=== PATIENT | male | born 1940 | race Caucasian/White ===

== ENCOUNTER 2019-11-15 13:26 | Outpatient (CLI) | payer MEDICARE, BC, SELFPAY ==
--- NOTE | 2019-11-15 10:30 | XR_ITS ---
WS: [id number] ABDOMEN 1 VIEW(S) HISTORY: Hydronephrosis COMPARISON: 03/14/2019 Increased fecal material throughout the colon. Colostomy over the LEFT abdomen. No suspicious calcifications or masses. No bone abnormality. Numerous prostate seeds over the prostate gland. XR/XR KUB [id number] IMPRESSION: No renal or ureteral calcifications identified radiographically.
--- NOTE | 2019-11-15 13:45 | US_ITS ---
WS: [id number] RENAL ULTRASOUND HISTORY: HYDRONEPHROSIS COMPARISON: 06/30/2018 TECHNIQUE: 2-D and color Doppler imaging of the kidney submitted. Right kidney: 10.5 cm x 3.6 cm x 4.8 cm. Normal echogenicity with no hydronephrosis or mass. Left kidney: 10.7 cm x 4.4 cm x 4.9 cm. Normal size kidney with no hydronephrosis. Exophytic cyst from the mid kidney measures 2.3 x 2.2 x 2. 0 cm. Aorta: Normal. Urinary Bladder: Urinary bladder is not identified. US/US renal BI* [id number] IMPRESSION: No renal obstruction or hydronephrosis. Stable LEFT renal cyst.
== END 2019-11-15 13:27 | disposition home or self-care (01) ==
LOC: RADWPI 13:31
PROVIDERS: Family Provider Family Medicine; PCP Family Medicine; Visit Provider Urology
DX: N13.30 Unspecified hydronephrosis (principal); N28.1 Cyst of kidney, acquired; N28.89 Other specified disorders of kidney and ureter
CPT/HCPCS: 74018; 76770

== ENCOUNTER → 2020-05-04 18:33 | Outpatient (BNVA) | payer MEDICARE, BC, SELFPAY | PROVIDERS: Family Provider Family Medicine; PCP Family Medicine; Visit Provider Nurse Practitioner Family | DX: Z20.828 Contact with and (suspected) exposure to other viral communicable diseases (principal) | CPT/HCPCS: 87635 ==

== ENCOUNTER 2020-08-30 07:28 | Outpatient (CLI) | payer MEDICARE, BC, SELFPAY ==
[2020-08-30 07:49] VITALS: BMI 31.4
--- NOTE | 2020-08-30 07:50 | NMCV_ITS ---
NM brooklynn perf SPECT r/s* [id number] Jony Xavier Age: 79 Gender: M : 1940 Exam Date: 08/30/2020 07:50 Ordering Phys: Kraig Major MD ([email or web address]) Technologist: LETICIA Gonzalez Exam Location: [facility] Indications: SOB STRESS TEST Please see separate stress test report in [facility] for full findings IMAGE PROTOCOL Rest/Stress 1 Lexiscan Day Radiopharmaceutical Dose (mCi) Administration Site Administered by Rest: Tc-99m 10.8 IV LETICIA Esposito Sestamibi Stress:Tc-99m 33.0 IV LETICIA Gonzalez Sestamibi Rest: 30-Aug-2020 60 Discovery 630 Stress: 30-Aug-2020 45 Discovery 630 0.4mg Lexiscan. Supine position only as patient was unable to lay prone. SPECT RESULTS Technical Quality: Good Raw Data Analysis: Normal Image Corrections: No attenuation or motion correction applied Summed Stress Score: 17 Summed Rest Score: 15 Summed Difference Score: 2 PERFUSION FINDINGS Large area of fixed perfusion defect noted in basal to distal anteroseptal and apical lateral wall suggestive of old myocardial infarction versus scarring. Possible involvement of LAD territory. FUNCTIONAL RESULTS (calculated via Gated SPECT) Stress Image LV EF (%): 52 Stress EDV (mL):81 TID: 1.02 Stress ESV (mL):39 Rest Image LV EF (%): 50 FUNCTIONAL FINDINGS: There appeared to be basal to distal anteroseptal and apical wall akinesis IMPRESSIONS Large area of old myocardial infarction versus scarring noted in basal to distal anteroseptal and apical lateral wall suggestive of possible involvement of LAD territory. Nuclear scan is negative for ischemia. EKG segment will be documented separately. Kraig Major MD (Electronically Signed) Final Date: 30 August 2020 19:45 S
--- NOTE | 2020-08-30 07:50 | ECG_ITS ---
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 The perfusion scan will be documented separately. DATA: Baseline heart rate was 59 beats per minute. Baseline blood pressure was 167/82 millimeters of mercury. Target heart rate was 143. Maximum heart rate achieved was 92. which was 64 % of the predicted target heart rate. Maximum blood pressure was 167/82 millimeters of mercury. The reason for ending the test was completion of the protocol. The patient did not experience any symptoms. ELECTROCARDIOGRAM: BASELINE: Sinus rhythm. Left axis. Old anterior wall myocardial infarction otherwise, interventricular conduction delay, no ST-T changes suggestive of ischemia noted. No arrhythmia noted. EXERCISE: After Lexiscan injection, no ST-T changes suggestive of ischemic noted. No arrhythmia noted. CONCLUSION: Please note due to baseline abnormality of the EKG specificity and sensitivity of the EKG portion of LexiScan MIBI stress test will be low 1. EKG not suggestive of ischemia 2. Lexiscan injection unremarkable. 3. Perfusion scan will be documented separately. Electronically Signed On 09-05-2020 18:27:59 PEDIATRIC SPEECH LANGUAGE PATHOLOGIST by KRAIG MAJOR [email or web address]
[2020-08-30] MEDS: regadenoson 0.4 Mg/5 ml Syringe IVP (10:09)
[2020-08-30 10:15] VITALS: BP 151/66; PULSE 75
--- NOTE | 2020-08-30 14:15 | USCV_ITS ---
Xavier Borges Age: 79 Gender: M : 1940 Exam Date: 08/30/2020 08:28 Ordering Phys: Kraig Major MD ([email or web address]) Technologist: Alex Barkley [place] [facility] [place]ication: CHEST PAIN BP: 132 / 74 HR: 65 Rhythm: Sinus Technical Quality: Fair MEASUREMENTS (Male / Female) Normal Values 2D ECHO LV Diastolic Diameter PLAX 4.2 cm 4.2 - 5.9 / 3.9 - 5.3 cm LV Systolic Diameter PLAX 2.9 cm IVS Diastolic Thickness 0.9 cm 0.6 - 1.0 / 0.6 - 0.9 cm IVS Systolic Thickness 1.3 cm LVPW Diastolic Thickness 1.2 cm 0.6 - 1.0 / 0.6 - 0.9 cm LVPW Systolic Thickness 1.3 cm LVOT Diameter 2.0 cm LV Ejection Fraction 2D Teich 56.5 % LV Ejection Fraction MOD 2C 65.0 % LV Ejection Fraction 2C AL 65.1 % LA Diameter 3.8 cm LA Width 4.2 cm LA Height 5.1 cm RA Width 4.4 cm RA Height 4.4 cm M-MODE LV Diastolic Diameter MM 5.0 cm 4.2 - 5.9 / 3.9 - 5.3 cm LV Systolic Diameter MM 3.4 cm LV Ejection Fraction MM Teich 60.3 % IVS Diastolic Thickness MM 1.1 cm 0.6 - 1.0 / 0.6 - 0.9 cm IVS Systolic Thickness MM 1.4 cm LVPW Diastolic Thickness MM 1.1 cm 0.6 - 1.0 / 0.6 - 0.9 cm LVPW Systolic Thickness MM 1.8 cm RV Diastolic Diameter MM 1.5 cm Aortic Annulus Diameter 3.5 cm LA Ao Ratio MM 1.1 MV E Point Septal Separation 0.8 cm DOPPLER AV Peak Velocity 100.0 cm/s LVOT Peak Velocity 81.0 cm/s AV Area Cont Eq vti 2.4 cm squared AV Area Cont Eq pk 2.6 cm squared MV Area PHT 5.0 cm squared Mitral E to A Ratio 1.2 MV E' Velocity 41.5 cm/s Mitral E to MV E' Ratio 9.6 Mitral E to LV E' Lateral Ratio 10.7 Mitral E to LV E' Septal Ratio 8.7 TR Peak Velocity 227.0 cm/s TR Peak Gradient 20.6 mmHg TV Peak E Velocity 69.0 cm/s Right Atrial Pressure 3.0 mmHg Pulmonary Artery Systolic Pressu 23.6 mmHg PV Peak Velocity 83.0 cm/s FINDINGS Left Ventricle Normal left ventricular cavity size. Normal left ventricular systolic function. Left ventricular ejection fraction is estimated at 60 %. Mild septal bounce noted which could be due to interventricular conduction delay.Grade II/IV diastolic dysfunction, moderately elevated filling pressures. Right Ventricle The right ventricle is normal in size and function. Right Atrium The right atrium is normal in size. Left Atrium The left atrium is normal in size. Mitral Valve Structurally normal mitral valve without significant stenosis or prolapse. There is no mitral regurgitation. Aortic Valve Moderate aortic valve calcification. No aortic valve stenosis. Trace aortic valve regurgitation. Tricuspid Valve Structurally normal tricuspid valve without significant stenosis or regurgitation. Pulmonary artery systolic pressure is normal. Pulmonic Valve Mild pulmonary valve regurgitation. Pericardium Normal pericardium without effusion. Aorta Normal ascending aorta dimension. CONCLUSIONS 1-Normal left ventricular cavity size. Normal left ventricular systolic function. Left ventricular ejection fraction is estimated at 60 %. Mild septal bounce noted which could be due to interventricular conduction delay.Grade II/IV diastolic dysfunction, moderately elevated filling pressures. 2-Moderate aortic valve calcification. No aortic valve stenosis. Trace aortic valve regurgitation. 3-Mild pulmonary valve regurgitation. 4-There is no pericardial effusion. 5-Pulmonary artery systolic pressure is within normal limits. 6-Right atrial pressure is around 5 mm of mercury. 7-When compared to the prior echocardiogram dated July 31, 2016, left ventricle ejection fraction is slightly increased from low normal 50% to normal 60% now. There appeared to be mild pulmonary valve regurgitation. Kraig Major MD (Electronically Signed) Final Date: 02 September 2020 19:08 S
== END 2020-08-30 07:29 | disposition home or self-care (01) ==
LOC: CDL 07:28
PROVIDERS: PCP Family Medicine; Visit Provider Internal Medicine Cardiovascular Disease
DX: R06.02 Shortness of breath (principal); I25.810 Atherosclerosis of coronary artery bypass graft(s) without angina pectoris
CPT/HCPCS: 78452; 93017; 93306; A9500; J2785

== ENCOUNTER 2021-01-01 08:14 | Outpatient (CLI) | payer MEDICARE, BC, SELFPAY ==
--- NOTE | 2021-01-01 08:00 | US_ITS ---
WS: [id number] RENAL ULTRASOUND HISTORY: Z98.890 - Other specified postprocedural states COMPARISON: 11/15/2019 TECHNIQUE: 2-D and color Doppler imaging of the kidney submitted. Right kidney: 9.7 cm x 4.6 cm x 3.4 cm. Very slight increased echogenicity within the kidney. Parapelvic cyst in the superior pole measures 1 .3 x 1.0 x 1.5 cm. No solid mass or obstruction. Left kidney: 10.8 cm x 5.8 cm x 4.3 cm. Normal size kidney with very slight increased echogenicity. Exophytic cyst from the lower pole measur es 2.1 x 2.3 x 2.2 cm. No solid mass. Aorta: Normal. Urinary Bladder: Prior cystectomy. US/US renal BI* [id number] IMPRESSION: 1. No hydronephrosis or solid renal mass. 2. Very mild chronic medical renal disease. 3. Bilateral renal cysts.
--- NOTE | 2021-01-01 08:45 | XR_ITS ---
WS: [id number] KUB, AP view, 01/01/2021 Clinical Data: N13.30 - Unspecified hydronephrosis Comparison: KUB, 11/15/2019 Findings: No abnormal intraabdominal masses or calcifications are seen. There is no dilatated small bowel or ev idence of obstruction. There is a left lower quadrant colostomy. There are radiopaque seeds in the prostate bed. XR/XR KUB [id number] Impression: Negative for renal or ureteral calculi.
[2021-01-01 09:03] LABS: Basophils % 0.7 %; Eosinophils # 0.1 10^3/uL (0.0-0.8); Eosinophils % 3.1 %; Hematocrit 43.5 % (42.0-52.0); Hemoglobin 14.1 g/dL (11.7-16.6); Lymphocytes # 1.3 10^3/uL (0.8-4.8); Lymphocytes % 29.2 %; Mean Corpuscular HGB Conc 32.4 g/dL (30.0-36.0); Mean Corpuscular Hemoglobin 30.6 pg (28.0-34.0); Mean Corpuscular Volume 94.4 fL (80-94); Mean Platelet Volume 9.3 fL (7.4-10.4); Monocytes # 0.4 10^3/uL (0.2-0.9); Monocytes % 8.2 %; Neutrophils # 2.65 10^3/uL (1.8-7.7); Neutrophils % 58.6 %; Nucleated Red Blood Cells % 0 %; Platelet Count 186 10^3/cmm (130-400); Red Blood Count 4.61 10^6/uL (4.1-5.3); Red Cell Distribution Width 13.4 % (12.1-15.1); White Blood Count 4.5 10^3/uL (4.0-10.0)
[2021-01-01 09:19] LABS: Alanine Aminotransferase 22 U/L (0-41); Albumin Level 4.2 g/dL (3.5-5.2); Alkaline Phosphatase 76 IU/L (40-130); Anion Gap 15.5 (5-19); Aspartate Amino Transferase 16 U/L (0-40); Blood Urea Nitrogen 19 mg/dL (8-23); Calcium 8.7 mg/dL (8.5-10.5); Carbon Dioxide 23 mmol/L (22-29); Chloride 105 mmol/L (98-107); Globulin 2.5 g/dL (1.3-4.6); Glucose 120 mg/dL (65-115); Osmolality Calculated 291 mOsm/kg (285-295); Potassium 4.5 mmol/L (3.5-5.1); Sodium 139 mmol/L (136-145); Total Bilirubin 0.5 mg/dL (0.15-1.2); Total Protein 6.7 g/dL (6.6-8.7)
== END 2021-01-01 08:15 | disposition home or self-care (01) ==
PROVIDERS: PCP Family Medicine; Visit Provider Urology
DX: Z98.890 Other specified postprocedural states (principal); N13.30 Unspecified hydronephrosis; N18.9 Chronic kidney disease, unspecified; N28.1 Cyst of kidney, acquired
CPT/HCPCS: 74018; 76770; 80053; 85025

== ENCOUNTER 2021-01-19 22:40 | Emergency (ER) | payer MEDICARE, BC, SELFPAY ==
[2021-01-19 23:02] VITALS: BP 146/86; PULSE 98; RESP 22; TEMP 38.3; O2SAT 91; BMI 29.0
--- NOTE | 2021-01-19 23:30 | XRR_ITS ---
PROCEDURE INFORMATION: Exam: XR Chest Exam date and time: 01/19/2021 11:30 PM Age: 80 years old Clinical indication: Fever; Prior surgery; Surgery date: 6+ months; Surgery type: Cabg; Additional info: Fever, body aches TECHNIQUE: Imaging protocol: XR of the chest. Views: 1 view. COMPARISON: CR Chest 2 views* [id number] 07/16/2016 10:42 AM FINDINGS: Lungs: There are increased linear opacity seen in the lower hemithoraces bilaterally, findings that may represent atelectasis although a bilateral basilar pneumonitis cannot be excluded. Pleural spaces: Unremarkable. No pleural effusion. No pneumothorax. Heart/Mediastinum: Unremarkable. No cardiomegaly. Bones/joints: Status post median sternotomy. XR/XR chest 1V portable [id number] IMPRESSION: Probable mild bilateral basilar atelectasis although a mild bilateral basilar pneumonitis cannot be entirely excluded.
--- NOTE | 2021-01-19 23:55 | ED_ITS ---
HPI - General Adult General: Chief complaint: Urogenital-Male Stated complaint: possible UTI Time Seen by Provider: 01/19/21 23:30 Source: patient Mode of arrival: ambulatory Limitations: no limitations History of Present Illness: HPI narrative: Patient is a 80-year-old male who presents to ED today with a complaint of fever of up to 101, generalized malaise, and feeling unwell over the past 1 to 2 days. Patient tells me he is concerned that he could have a UTI/pyelonephritis as he has had several of these infections previously. He states he has also had a headache. When asked about shortness of breath and cough he states he normally has these do not feel like they are worsening in any way. He has not had any episodes of vomiting. He has not noticed any change from his ileostomy output. 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 He states that the prostate seeds they used burned through me . He ultimately required cystectomy. Associated symptoms: Reports dyspnea (chronic); Deny chest pain, headache(s), rash or vomiting Review of Systems Const: Reports: fever(s), chills, body aches and fatigue; Denies: change in appetite or change in weight Eyes: Denies: change in vision, blurry vision or photophobia ENMT: Denies: throat pain or odynophagia Card: Denies: chest pain Resp: Reports: dyspnea (chronic) GI: Denies: abdominal pain, vomiting or diarrhea : Denies: flank pain Musc: Denies: neck pain or back pain Skin/Breast: Denies: rash Neuro: Denies: headache(s) PFS ED PFSH: Medical History (Updated 01/20/21 @ 01:10 by JIGAR Castillo) CAD (coronary artery disease) CKD (chronic kidney disease) COPD (chronic obstructive pulmonary disease) Coronary artery disease involving autologous artery coronary bypass graft Dyslipidemia H/O coronary angiogram History of prostate cancer Myocardial infarct, old Prostate cancer Recurrent UTI (urinary tract infection) Surgical History (Updated 01/01/21 @ 09:48 by Fotrino Shi MD) History of urinary diversion procedure History of urostomy S/P colostomy S/P coronary artery bypass graft x 1 S/P coronary artery bypass graft x 1 Family History Father Heart disease Other Cancer Social History Smoking and tobacco status: former smoker Alcohol intake: never Adopted: No Caregiver/support person: No Lives independently: No Household members: spouse Marital status: Current occupational status: retired History of recent travel: No Current gender identity: Male Physical Exam Const: COMMON NORMALS: no acute distress, average body habitus, patient oriented x3, no limitations, healthy appearing, alert and well nourished GENERAL APPEARANCE: cooperative ORIENTATION/CONSCIOUSNESS: Yes awake, Yes oriented to person, Yes oriented to place and Yes oriented to time Resp: COMMON NORMALS: normal respiratory effort and clear to auscultation bilaterally AUSCULTATION: clear to auscultation bilaterally Cardio: COMMON NORMALS: regular rate and regular rhythm RATE: regular rate RHYTHM: regular rhythm GI: COMMON NORMALS: Soft to palpation, non-tender, No hepatosplenomegaly present and no masses PALPATION: Yes Soft to palpation and Yes No hepatosplenomegaly present OTHER: urinary stoma appears normal and urine in bag looks clean; no output currently in his ileostomy bag : COMMON NORMALS: Yes no CVA tenderness BLADDER/KIDNEY EXAM: Yes no CVA tenderness Back/Pelvis: COMMON NORMALS: no CVA tenderness Neuro: COMMON NORMALS: patient oriented x3 SENSORIUM/ORIENTATION: Yes alert, Yes oriented to person, Yes oriented to place and Yes oriented to time Skin: COMMON NORMALS: no rashes or lesions noted GENERAL SKIN EXAM: no rashes or lesions noted Course Vital Signs: Vital signs: Vital Signs Temperature 101 F H 01/19/21 23:02 Pulse Rate 84 01/20/21 01:31 Respiratory Rate 16 01/20/21 01:31 Blood Pressure 151/78 01/20/21 01:31 Pulse Oximetry 95 01/20/21 01:31 MDM - General Adult MDM Narrative: Medical decision making narrative: Patient clinically appears well.. He arrived febrile at 101 but remainder of vitals are stable. He was given PO Tylenol for the fevers. White count is not elevated. His urine does not look suspicious for a UTI. COVID is negative. CXR normal. At this point most likely viral infection. Discussed strict return to ED precautions. Otherwise I want him to follow up with PCP this week. Lab Data: Labs: Lab Results 01/19/21 01/19/21 01/19/21 Range/Units 23:30 23:30 23:30 WBC 2.0 L (4.0-10.0) 10^3/ uL RBC 4.74 (4.1-5.3) 10^6/u L Hgb 14.4 (11.7-16.6) g/dL Hct 45.0 (42.0-52.0) % MCV 94.9 H (80-94) fL MCH 30.4 (28.0-34.0) pg MCHC 32.0 (30.0-36.0) g/dL RDW 13.3 (12.1-15.1) % Plt Count 116 L (130-400) 10^3/c mm MPV 9.6 (7.4-10.4) fL Neut % (Auto) 73.9 % Lymph % (Auto) 17.4 % [place] % (Auto) 7.2 % Eos % (Auto) 0.0 % Baso % (Auto) 1.0 % Neut # (Auto) 1.44 L (1.8-7.7) 10^3/u L Lymph # (Auto) 0.3 L (0.8-4.8) 10^3/u L [place] # (Auto) 0.1 L (0.2-0.9) 10^3/u L Eos # (Auto) 0.0 (0.0-0.8) 10^3/u L Baso # (Auto) 0.0 (0.0-0.1) 10^3/u L Nucleated RBC % (a uto) 0 % Nucleated RBCs # 0.0 /100WBC Sodium 134 L (136-145) mmol/L Potassium 4.0 (3.5-5.1) mmol/L Chloride 101 (98-107) mmol/L Carbon Dioxide 23 (22-29) mmol/L Anion Gap 14.0 (5-19) BUN 22 (8-23) mg/dL Creatinine 1.5 H (0.7-1.2) mg/dL GFR Calculation Not Reportable Glucose 126 H (65-115) mg/dL Calculated Osmolal ity 283 L (285-295) mOsm/k g Lactic Acid 1.0 (0.5-2.2) mmol/L Calcium 9.1 (8.5-10.5) mg/dL Total Bilirubin 0.8 (0.15-1.2) mg/dL AST 30 (0-40) U/L ALT 33 (0-41) U/L Alkaline Phosphata se 85 (40-130) IU/L Total Protein 6.8 (6.6-8.7) g/dL Albumin 3.8 (3.5-5.2) g/dL Globulin 3.0 (1.3-4.6) g/dL Urine Color (Yellow) Urine Appearance (CLEAR) Urine pH (5-7) Ur Specific Gravit y (1.005-1.030) Urine Protein (Negative) Urine Glucose (UA) (Normal) Urine Ketones (Negative) Urine Blood (Negative) Urine Nitrate (Negative) Urine Bilirubin (Negative) Urine Urobilinogen (Negative) mg/dL Ur Leukocyte Mora ase (Negative) Urine RBC (0-2) /hpf Urine WBC (0-5) /hpf Ur Squamous Epith Cells (0-5) /hpf Amorphous Sediment Urine Bacteria (NONE) /hpf Urine Mucus /hpf SARS-CoV-2 Ag (Rap id) (Negative) 01/19/21 01/20/21 Range/Units 23:45 00:05 WBC (4.0-10.0) 10^3/ uL RBC (4.1-5.3) 10^6/u L Hgb (11.7-16.6) g/dL Hct (42.0-52.0) % MCV (80-94) fL MCH (28.0-34.0) pg MCHC (30.0-36.0) g/dL RDW (12.1-15.1) % Plt Count (130-400) 10^3/c mm MPV (7.4-10.4) fL Neut % (Auto) % Lymph % (Auto) % [place] % (Auto) % Eos % (Auto) % Baso % (Auto) % Neut # (Auto) (1.8-7.7) 10^3/u L Lymph # (Auto) (0.8-4.8) 10^3/u L [place] # (Auto) (0.2-0.9) 10^3/u L Eos # (Auto) (0.0-0.8) 10^3/u L Baso # (Auto) (0.0-0.1) 10^3/u L Nucleated RBC % (a uto) % Nucleated RBCs # /100WBC Sodium (136-145) mmol/L Potassium (3.5-5.1) mmol/L Chloride (98-107) mmol/L Carbon Dioxide (22-29) mmol/L Anion Gap (5-19) BUN (8-23) mg/dL Creatinine (0.7-1.2) mg/dL GFR Calculation Glucose (65-115) mg/dL Calculated Osmolal ity (285-295) mOsm/k g Lactic Acid (0.5-2.2) mmol/L Calcium (8.5-10.5) mg/dL Total Bilirubin (0.15-1.2) mg/dL AST (0-40) U/L ALT (0-41) U/L Alkaline Phosphata se (40-130) IU/L Total Protein (6.6-8.7) g/dL Albumin (3.5-5.2) g/dL Globulin (1.3-4.6) g/dL Urine Color Yellow (Yellow) Urine Appearance Turbid (CLEAR) Urine pH 5 (5-7) Ur Specific Gravit y 1.020 (1.005-1.030) Urine Protein 1+ H (Negative) Urine Glucose (UA) Norm (Normal) Urine Ketones Negative (Negative) Urine Blood Neg (Negative) Urine Nitrate Negative (Negative) Urine Bilirubin Neg (Negative) Urine Urobilinogen Norm (Negative) mg/dL Ur Leukocyte Mora ase Negative (Negative) Urine RBC 0-4 H (0-2) /hpf Urine WBC 5-10 H (0-5) /hpf Ur Squamous Epith Cells 5-10 H (0-5) /hpf Amorphous Sediment Not Reportable Urine Bacteria Trace (NONE) /hpf Urine Mucus 4+ /hpf SARS-CoV-2 Ag (Rap id) Negative (Negative) Imaging Data^: CXR: My impression: NAD Discharge Plan Discharge Patient Disposition: Home Clinical Impression: Viral syndrome Condition: Stable Prescriptions: No Action Anoro Ellipta 62.5-25 mcg/actuation blister with device 1 inh INHALATION DAILY RF: 0 aspirin [Adult Low Dose Aspirin] 81 mg tablet,delayed release (DR/EC) 81 mg PO ONCE RF: 0 desloratadine [Clarinex] 5 mg tablet 5 mg PO DAILY RF: 0 nitroglycerin [Nitrostat] 0.4 mg tablet, sublingual 0.4 mg SUBLINGUAL DIRECTED PRNRF: 0 multivitamin Tablet 1 tab PO DAILY RF: 0 albuterol sulfate 1.25 mg/3 mL solution for nebulization 1.25 mg INHALATION QID PRNRF: 0 albuterol sulfate 90 mcg/actuation HFA aerosol inhaler 1 inh INHALATION Q4H PRNRF: 0 gabapentin 400 mg capsule 400 mg PO TID RF: 0 (DME) QUERCETIN/BROMELIAN 500MG 0 .Route .MEDSUPPLY RF: 0 ascorbate calcium (vitamin C) 500 mg tablet 1 gm PO BID RF: 0 ramipril 1.25 mg capsule See Rx Instructions .ROUTE .COMPLEX Qty: 90 RF: 3 carvedilol 12.5 mg tablet 12.5 mg PO BID Qty: 240 RF: 3 atorvastatin [Lipitor] 10 mg tablet 10 mg PO DAILY Qty: 120 RF: 3 isosorbide mononitrate 30 mg tablet extended release 24 hr 15 mg PO BID Qty: 90 RF: 3 ciprofloxacin HCl 500 mg tablet See Rx Instructions .ROUTE .COMPLEX Qty: 60 RF: 0 methenamine hippurate 1 gram tablet See Rx Instructions .ROUTE .COMPLEX Qty: 180 RF: 0 Discharge Orders: Discharge ED (Routine); Ordered 01/20/21 Ordered By: Hannah Elias Referrals: Rohit Suárez MD [Primary Care Provider] - Patient Instructions: Viral Syndrome - Adult Activity Restrictions/Additional Instructions: As we discussed you need to return to the emergency department for worsening or uncontrollable fevers, generally feeling worse or unwell, severe abdominal pain, repetitive episodes of vomiting, cough, severe shortness of breath, or any other concerns you may have. Otherwise he may follow-up with primary care next week for reevaluation. I hope you begin to feel better soon. Coding Level of Care Code ED Cna Per Diem for Avi Fwd Exam Detailed
[2021-01-19 23:56] VITALS: BP 135/68; PULSE 85; RESP 18; O2SAT 95
[2021-01-20 00:05] LABS: Urine Appearance Turbid (CLEAR); Urine Color Yellow (Yellow); pH Urine 5 (5-7)
[2021-01-20 00:06] LABS: Add Urine Microscopic? YES; Bilirubin Urine Neg (Negative); Blood Urine Neg (Negative); Glucose Urine UA Norm (Normal); Ketones Urine Negative (Negative); Leukocyte Esterase Urine Negative (Negative); Nitrate Urine Negative (Negative); Protein Urine 1+ (Negative); Urobilinogen Urine Norm (Negative)
[2021-01-20 00:10] LABS: Add Urine Culture? No; Bacteria Urine TRACE /hpf; Mucus Urine 4+ /hpf; RBC Urine 0-4 /hpf (0-2)
[2021-01-20 00:15] LABS: Hemoglobin 14.4 g/dL (11.7-16.6); Lymphocytes # 0.3 10^3/uL (0.8-4.8); Lymphocytes % 17.4 %; Mean Corpuscular Hemoglobin 30.4 pg (28.0-34.0); Mean Corpuscular Volume 94.9 fL (80-94); Mean Platelet Volume 9.6 fL (7.4-10.4); Monocytes # 0.1 10^3/uL (0.2-0.9); Monocytes % 7.2 %; Neutrophils # 1.44 10^3/uL (1.8-7.7); Neutrophils % 73.9 %; Nucleated Red Blood Cells % 0 %; Platelet Count 116 10^3/cmm (130-400); Red Blood Count 4.74 10^6/uL (4.1-5.3); Red Cell Distribution Width 13.3 % (12.1-15.1)
[2021-01-20 00:27] LABS: Alanine Aminotransferase 33 U/L (0-41); Albumin Level 3.8 g/dL (3.5-5.2); Alkaline Phosphatase 85 IU/L (40-130); Aspartate Amino Transferase 30 U/L (0-40); Blood Urea Nitrogen 22 mg/dL (8-23); Calcium 9.1 mg/dL (8.5-10.5); Carbon Dioxide 23 mmol/L (22-29); Chloride 101 mmol/L (98-107); Glucose 126 mg/dL (65-115); Osmolality Calculated 283 mOsm/kg (285-295); Sodium 134 mmol/L (136-145); Total Bilirubin 0.8 mg/dL (0.15-1.2); Total Protein 6.8 g/dL (6.6-8.7)
[2021-01-20 00:43] LABS: SARS Covid-2 Antigen Negative (Negative)
[2021-01-20 00:46] VITALS: BP 133/58; PULSE 108; RESP 22; O2SAT 96
[2021-01-20] MEDS: acetaminophen 500 mg Tablet 1000 MG PO (00:57)
[2021-01-20 00:58] VITALS: BP 133/58; PULSE 82; RESP 18; O2SAT 95
[2021-01-20 01:31] VITALS: BP 151/78; PULSE 84; RESP 16; O2SAT 95
== END 2021-01-20 01:32 | disposition home or self-care (01) ==
PROVIDERS: Emergency Provider Physician Assistant; PCP Family Medicine
DX: B34.9 Viral infection, unspecified (principal); Z79.82 Long term (current) use of aspirin; I25.10 Atherosclerotic heart disease of native coronary artery without angina pectoris; J44.9 Chronic obstructive pulmonary disease, unspecified; E78.5 Hyperlipidemia, unspecified; Z85.46 Personal history of malignant neoplasm of prostate; I25.2 Old myocardial infarction; Z87.891 Personal history of nicotine dependence; Z20.822 Contact with and (suspected) exposure to COVID-19
CPT/HCPCS: 71045; 80053; 81001; 81003; 83605; 85025; 87040; 87426; 99283

== ENCOUNTER 2021-05-29 09:53 | Outpatient (CLI) | payer MEDICARE, BC, SELFPAY ==
--- NOTE | 2021-05-29 10:01 | CT_ITS ---
WS: [id number] LDCT LUNG CANCER SCREENING TECHNIQUE: Noncontrast CT of the chest with coronal and sagittal reformatted images. CLINICAL INFORMATION: HX OF TOBACCO USE COMPARISON: None. DLP: 58.54 mGy.cm DIvol: 1.[address] scans at [facility] use at least one of these dose optimization techniques: automat ed exposure control; mA and/or kV adjustment per patient size (includes targeted exams where dose is matched to clinical indication); or iterative reconstruction. FINDINGS: Solid slightly spondylitic nodule right upper lobe measuring 9 mm. No prior comparisons. Recommend fu rther evaluation with PET/CT. CT-guided biopsy would be challenging due to anterior upper lobe locati on. Additional spiculated opacity in the right upper lobe posteriorly near the fissure measuring 9 mm . This can also be evaluated PET/CT. Additional semisolid patchy opacity in the left upper lobe later ally measuring 10 mm. Additional subpleural fibrotic appearing opacity in the inferior segment right upper lobe along the fissure measuring 8 mm. Subsegmental atelectasis in the lung bases. A few patchy opacities in both lungs likely infectious or inflammatory. Sternotomy. Dense aortic calcification. Coronary calcification. No mediastinal or hilar lymphadenopat hy. Adrenal glands are normal. Prior postoperative changes GE junction. CT/CT lung screening [id number] IMPRESSION: LUNG-RADS: 4B-Suspicious FOLLOW UP: PET/CT recommended
== END 2021-05-29 09:54 | disposition home or self-care (01) ==
LOC: CT 09:56
PROVIDERS: PCP Family Medicine; Visit Provider Family Medicine
DX: Z12.2 Encounter for screening for malignant neoplasm of respiratory organs (principal); Z87.891 Personal history of nicotine dependence
CPT/HCPCS: 71271

== ENCOUNTER → 2021-07-31 10:28 | Outpatient (BNVA) | payer MEDICARE, BC, SELFPAY | PROVIDERS: PCP Family Medicine; Visit Provider Internal Medicine Pulmonary Disease | DX: Z20.822 Contact with and (suspected) exposure to COVID-19 (principal); Z01.812 Encounter for preprocedural laboratory examination | CPT/HCPCS: 87635 ==

== ENCOUNTER 2021-08-07 08:02 | Outpatient (CLI) | payer MEDICARE, BC, SELFPAY ==
--- NOTE | 2021-08-07 10:24 | PFTS_ITS ---
Date of Study:08/07/21 Date of Dictation: MECHANICS: Forced vital capacity (FVC) is reduced. Forced expiratory volume in one second (FEV1) is reduced. FEV1/FVC is reduced. FLOW VOLUME LOOP: Reduced flow at all lung volumes with significant scooping. LUNG VOLUMES: Total lung capacity (TLC) is normal. Residual volume (RV) is increased. DIFFUSING CAPACITY FOR CARBON MONOXIDE: Moderately reduced. INTERPRETATION: The prebronchodilator spirometry is consistent with moderate airflow obstruction. No postbronchodilator spirometry was performed. Lung volumes are consistent with air trapping. Gas exchange (DLCO) is moderately reduced. MTDD
== END 2021-08-07 08:03 | disposition home or self-care (01) ==
LOC: RT 08:04
PROVIDERS: PCP Family Medicine; Visit Provider Internal Medicine Pulmonary Disease
DX: R06.02 Shortness of breath (principal); J44.9 Chronic obstructive pulmonary disease, unspecified
CPT/HCPCS: 94010; 94618; 94726; 94729

== ENCOUNTER 2021-09-22 08:16 | Outpatient (CLI) | payer MEDICARE, BC, SELFPAY ==
--- NOTE | 2021-09-22 08:30 | CT_ITS ---
WS: [id number] CT CHEST WITHOUT INTRAVENOUS CONTRAST HISTORY: 3 month f/u lung nodule TECHNIQUE: Contiguous 5 mm axial imaging performed on the thorax. Coronal and sagittal reformats are submitted. All CT scans at [facility] use at least one of these dose optimization techniques: automated exposure control; mA and/or kV adjustment per patient size (includes targeted exams where dose is matched to clinical indication); or iterative reconstruction. CONTRAST: None DLP: 700.36 mGy.cm COMPARISON: 05/29/2021 lung screening. PET/CT 06/07/2021 Lungs and central airway: Mildly hyperinflated lungs. Solid lobulated nodule now measures 12 mm in sh ort axis diameter as compared to 9 mm on the prior study of 05/29/2021. There are additional, numerous and bilateral areas of groundglass opacification. Subsolid nodule measures 9 mm in the posterior RIG HT upper lobe. There is an additional area of spiculation in the central RIGHT upper lobe. Pleura: Normal. No pleural effusion. Heart and pericardium: Normal size heart with no pericardial effusion. Mediastinum and flaquita: No adenopathy. Vessels: Moderate atherosclerotic changes within the thoracic aorta. Calcifications extend into the p roximal great vessels. Pulmonary artery size is equal to the aorta at 2.8 cm. Prior CABG. Extensive c oronary artery calcifications. Chest wall and lower neck: Prior CABG. Upper abdomen: Small hiatal hernia. Nonenhanced imaging of the liver is negative. Gallbladder is very slightly contracted. Osseous structures: No destructive process. CT/CT chest wo con [id number] IMPRESSION: 1. Slight increase in size of the lobulated RIGHT upper lobe nodule now measur ing 12 mm as compared to 9 mm on the prior study. Suspicious on the recent PET/ CT for malignancy. 2. There are additional bilateral subsolid pulmonary nodules and groundglass o pacifications which were indeterminate on the PET/CT. Not significantly increas ed in size since the prior study but suspicious for metastatic disease. 3. No adenopathy. 4. Prior CABG.
== END 2021-09-22 08:17 | disposition home or self-care (01) ==
LOC: RAD 08:17
PROVIDERS: PCP Family Medicine; Visit Provider Internal Medicine Pulmonary Disease
DX: R91.1 Solitary pulmonary nodule (principal); Z95.1 Presence of aortocoronary bypass graft
CPT/HCPCS: 71250

== ENCOUNTER → 2021-10-01 10:03 | Outpatient (BNVA) | payer MEDICARE, BC, SELFPAY | PROVIDERS: PCP Family Medicine; Visit Provider Internal Medicine | DX: R91.1 Solitary pulmonary nodule (principal) | CPT/HCPCS: 87635; 99215 ==

== ENCOUNTER 2021-10-07 05:46 | Day surgery (SDC) | payer MEDICARE, BC, SELFPAY ==
--- NOTE | 2021-10-07 | CT_ITS ---
Guided Bronchoscopy Planning CT images; total exam DLP: 927.13 mGy-cm MTDD
--- NOTE | 2021-10-07 06:31 | P.HP_ITS ---
Same Day Surgery H&P Indication for Procedure/HPI DATE OF PROCEDURE: October 07, 2021 CHIEF COMPLAINT/INDICATIONFOR SURGICAL PROCEDURE: PET positive right upper lobe lung nodule. PREOP DIAGNOSIS: Lung nodule PLANNED PROCEDURE: Bronchoscopy with inspection of the airway, possible endobronchial biopsy, bronchoalveolar lavage, navigational bronchoscopy guided transbronchial biopsy of the right upper lobe lung nodule, fine-needle aspiration, Cytobrush, endobronchial sound guided transbronchial needle aspiration of lymph nodes and control of bleeding. Operation Date: 10/07/21 07:10 Proposed Procedures p Veran(Not Applicable) - Jenna Quiroz MD s Ebus(Not Applicable) - Jenna Quiroz MD This is a 81-year-old gentleman who had been following up with my colleague for evaluation management of pulmonary nodule. The patient is an ex-smoker. He quit smoking in 2010. A low-dose CT scan for lung cancer screening in May 2021 revealed several lung nodules. A PET CT was also obtained at that the right upper lobe nodule measuring 9 mm was PET positive with an SUV of 1.7. Decision was made to follow this up by serial imaging. The repeat CT scan in August 2021 revealed mild increase in the size of the right upper lobe lung nodule which measured 12 mm now. This was followed by a PET CT scan which showed the right upper lobe nodular SUV to be 2.8. The patient also have left upper lobe nodule which measures 9 mm with an SUV of 1.8. No known lymph node involvement, at least based on imaging. The patient carries a previous diagnosis of coronary artery disease status post CABG, COPD, CKD. His pulmonary function test from July 2021 is consistent with moderate airflow obstruction with air trapping with moderate reduced DLCO. The patient is currently on Anoro. He is not using any Plavix. He is on aspirin 81 mg. The patient is doing well this morning. The patient has chronic cough, sputum production and exertional shortness of breath. No new symptoms. Medications/Allergies* Home Medications Medication Instructions Recorded Confirmed Type albuterol sulfate 1.25 mg/3 mL 1.25 mg INHALATION QID PRN 08/07/19 10/03/21 History solution for nebulization albuterol sulfate 90 mcg/actuation 1 inh INHALATION Q4H PRN gm 08/07/19 10/03/21 History aerosol inhaler desloratadine 5 mg tablet 5 mg PO DAILY tab 08/07/19 10/03/21 History (Clarinex) multivitamin 1 tab PO DAILY tab 08/07/19 10/03/21 History umeclidinium 62.5 mcg-vilanterol 1 inh INHALATION DAILY 11/17/19 10/03/21 History 25 mcg/actuation powdr for inhalation (Anoro Ellipta) ascorbate calcium (vitamin C) 500 1 gm PO BID tab 05/04/20 10/03/21 History mg tablet gabapentin 400 mg capsule 400 mg PO TID 08/09/20 10/03/21 History QUERCETIN/BROMELIAN 01/01/21 10/03/21 History aspirin 81 mg tablet,delayed 81 mg PO DAILY tab 03/13/21 10/06/21 History release (Adult Low Dose Aspirin) methenamine hippurate 1 gram tablet 1 g PO BID 10/03/21 10/03/21 History Allergies/Adverse Reactions Allergy/AdvReac Type Severity Reaction Status Date / Time No Known Allergies Allergy Verified 06/26/21 12:55 Pertinent History/Comorbid Conditions* Medical History (Updated 06/26/21 @ 18:40 by Madhu Camarena MD) CAD (coronary artery disease) CKD (chronic kidney disease) COPD (chronic obstructive pulmonary disease) Coronary artery disease involving autologous artery coronary bypass graft Dyslipidemia H/O coronary angiogram History of prostate cancer Myocardial infarct, old Prostate cancer Recurrent UTI (urinary tract infection) Surgical History (Updated 01/01/21 @ 09:48 by Fortino Shi MD) History of urinary diversion procedure History of urostomy S/P colostomy S/P coronary artery bypass graft x 1 S/P coronary artery bypass graft x 1 Family History (Updated 08/07/19 @ 10:01 by Divya Garduno RN) Father Heart disease Father Cancer Social History Alcohol intake: never Adopted: No Caregiver/support person: No Lives independently: No Household members: spouse Marital status: Current occupational status: retired History of recent travel: No Current gender identity: Male Pertinent Exam Findings alert and oriented x 3 General: Patient is awake alert and oriented, in no acute distress. Neck: No JVD Respiratory: Auscultation: Reduced breath sound bilaterally, bilateral clear to auscultation both anterior and posteriorly, no crackles wheezing or rhonchi Cardiovascular: Regular rate and rhythm, S1-S2 present, distant heart sound, no murmur, no peripheral edema Abdomen: Soft, nontender, nondistended, positive bowel sound Musculoskeletal: No obvious joint deformity Skin: No rash Lymphatic: The axillary and inguinal lymph node groups are not examined Neuro: Mental status is normal, no gross cranial nerve deficit, normal motor and coordination. Recommendations Surgery/Procedure today Other Plans: 1. Lung nodule: I have discussed the plan in detail with the patient and his . We are going to be proceeding with the navigational bronchoscopy and EBUS. I have discussed the risks involved including bleeding, pneumothorax and possibility of further complications. However, I am expecting to do this procedure without any significant difficulties. 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
[2021-10-07 06:37] VITALS: BP 126/75; PULSE 76; RESP 18; TEMP 36.2; O2SAT 94
[2021-10-07] MEDS: sodium chloride 0.9% 1,000 ML 30 ML IV (06:41)
--- NOTE | 2021-10-07 06:42 | ANES.PREANE2 ---
Pre-Anesthetic Assessment Height/Weight: Height 1.68 m Weight 86.183 kg Temp Pulse Resp BP Pulse Ox 97.1 F L 76 18 126/75 94 10/07/21 06:37 10/07/21 06:37 10/07/21 06:37 10/07/21 06:37 10/07/21 06:37 Preop Diagnosis: Lung nodule Operation Date: 10/07/21 07:10 Proposed Procedures p Veran(Not Applicable) - Jenna Quiroz MD s Ebus(Not Applicable) - Jenna Quiroz MD Familial anesthetic complications: NOnw Was Beta Jorje taken within 24 hours: Yes Was Clonidine taken within 24 hours: N/A Last intake: Intake Last Liquid Date 10/06/21 Last Liquid Time 22:00 Last Solid Date 10/06/21 Last Solid Time 22:00 Social No alcohol and No tobacco Exam alert, oriented x 3, clear to auscultation bilaterally and regular rate & rhythm Airway Cervical ROM: within normal limits Mallampati: Class III Dentition: false CV/HEM Coronary Artery Disease (cabg), Hypertension and Myocardial Infarction None reported Hepatic None reported GI Gastroesophageal Reflux Disease (occASSIONAL) Metabolic None reported Musc/skel Lower Back Pain Neuropsych None reported Anesthetic Plan ASA status: 4 Anesthesia: General Risk of > 500 ml blood loss (7ml/kg in children): Yes, adequate IV access and fluids planned Medications/Allergies Home Medications Medication Instructions Recorded Confirmed Last Taken Type albuterol sulfate 1.25 mg/3 mL 1.25 mg INHALATION QID PRN 08/07/19 10/03/21 Unknown History solution for nebulization albuterol sulfate 90 mcg/actuation 1 inh INHALATION Q4H PRN gm 08/07/19 10/03/21 Unknown History aerosol inhaler desloratadine 5 mg tablet 5 mg PO DAILY tab 08/07/19 10/03/21 Unknown History (Clarinex) multivitamin 1 tab PO DAILY tab 08/07/19 10/03/21 Unknown History umeclidinium 62.5 mcg-vilanterol 1 inh INHALATION DAILY 11/17/19 10/03/21 Unknown History 25 mcg/actuation powdr for inhalation (Anoro Ellipta) ascorbate calcium (vitamin C) 500 1 gm PO BID tab 05/04/20 10/03/21 Unknown History mg tablet gabapentin 400 mg capsule 400 mg PO TID 08/09/20 10/03/21 Unknown History QUERCETIN/BROMELIAN 01/01/21 10/03/21 Unknown History aspirin 81 mg tablet,delayed 81 mg PO DAILY tab 03/13/21 10/06/21 10/03/21 History release (Adult Low Dose Aspirin) nitroglycerin 0.4 mg sublingual 0.4 mg SUBLINGUAL DIRECTED PRN 03/13/21 10/03/21 Unknown Rx tablet (Nitrostat) #25 tab atorvastatin 10 mg tablet (Lipitor) 10 mg PO DAILY #100 tab 07/16/21 10/03/21 Unknown Rx carvedilol 12.5 mg tablet 12.5 mg PO BID #200 tab 07/16/21 10/03/21 Unknown Rx ramipril 1.25 mg capsule 1.25 mg PO DAILY #100 cap 07/16/21 10/03/21 Unknown Rx isosorbide mononitrate 30 mg 15 mg PO BID #100 tab 09/09/21 10/03/21 Unknown Rx tablet,extended release 24 hr methenamine hippurate 1 gram tablet 1 g PO BID 10/03/21 10/03/21 Unknown History Allergies Allergy/AdvReac Type Severity Reaction Status Date / Time No Known Allergies Allergy Verified 06/26/21 12:55 Current Medications Generic Name Dose Route Start Last Admin Trade Name Freq PRN Reason Stop Dose Admin Sodium Chloride 1,000 mls @ 30 mls/hr 10/07/21 06:15 10/07/21 06:41 Sodium Chloride 0.9% IV 30 mls/hr .Q24H KAMI Administration PFSH Anesthesia Medical History CAD (coronary artery disease) CKD (chronic kidney disease) COPD (chronic obstructive pulmonary disease) Coronary artery disease involving autologous artery coronary bypass graft Dyslipidemia H/O coronary angiogram History of prostate cancer Myocardial infarct, old Prostate cancer Recurrent UTI (urinary tract infection) Surgical History History of urinary diversion procedure History of urostomy S/P colostomy S/P coronary artery bypass graft x 1 S/P coronary artery bypass graft x 1 Family History Father Heart disease Other Cancer Social History Alcohol intake: never Adopted: No Caregiver/support person: No Lives independently: No Household members: spouse Marital status: Current occupational status: retired History of recent travel: No Current gender identity: Male Data Anesthesia Cardiac Studies: Echocardiogram Ultrasound 08/30/20 Sestamibi Stress Test (Cardiology) 08/30/20
[2021-10-07] MEDS: lidocaine 1% INJ 20 mL XX (07:55)
--- NOTE | 2021-10-07 08:32 | P.OP_ITS ---
Operative Report Date of procedure: October 07, 2021 Pre-op diagnosis: Preop Diagnosis Lung nodule Brief History: This is a 81-year-old gentleman with PET positive lung nodule coming in for bronchoscopic evaluation. Procedure: Name of the procedure: Bronchoscopy with inspection of the airway, bronchoalveolar lavage, transbronchial biopsies, possible endobronchial ultrasound-guided transbronchial needle aspiration of lymph nodes and control of bleeding. Indication: Right upper lobe PET positive lung nodule Anesthesia: General anesthesia. Local anesthesia: The yg in the right and left mainstem bronchi were anesthetized with 1% lidocaine, 3 mL. Description of the procedure: The procedure was explained to the patient and the consent was obtained. The patient was brought to the OR. The patient underwent endotracheal intubation for general anesthesia. Following induction of general anesthesia, the bronchoscope was advanced through the ET tube. The lower trachea appeared to be normal. The yg was sharp. The yg, the right and left mainstem bronchi are anesthetized with 1% lidocaine. In a systematic manner bilateral bronchial tree was then examined. The bronchoscope was advanced into the left mainstem bronchus. The left upper lobe, lingula and left lower lobe bronchi were examined up to the third subsegmental level and no abnormalities were identified. The entrance to the apical segment of the left upper lobe was partially occluded by approximation of the airway dougherty. This could be traversed with the bronchoscope and no endobronchial lesion was identified. The bronchoscope was then introduced into the right mainstem bronchus. The right upper lobe, right middle lobe and right lower lobe bronchi were examined up to the third subsegmental level and no abnormalities were identified. Mucus was noted diffusely throughout the airw ays. Using navigational bronchoscopy technique, transbronchial biopsies were obtained from the right upper lobe lung nodule. Fine-needle aspiration was also performed from the same nodule. Bronchoalveolar lavage was performed from the right upper lobe. 40 cc of fluid was instilled, fluid return was 12 mL. The endobronchial ultrasound was introduced through the ET tube. No mediastinal hilar lymphadenopathy was identified. The lymph nodes in 4R, station 7, right and left hilar area demonstrated distinct cortex and medulla. Samples: 1. The transbronchial biopsies were sent for histopathology. 2. The fine-needle aspiration was sent for cytology. 3. The bronchoalveolar lavage was sent for cytology. Complications: There was no immediate complications. Chest x-ray: Pending
[2021-10-07 08:33] VITALS: BP 111/47; PULSE 70; RESP 16; TEMP 36.2; O2SAT 95
[2021-10-07 08:39] VITALS: BP 118/75; BP 94/75; PULSE 68; RESP 16; TEMP 36.3; O2SAT 91; O2SAT 92
--- NOTE | 2021-10-07 08:48 | XR_ITS ---
WS: [id number] XR chest 1V portable [id number] REASON FOR EXAM: Veran/Ebus right upper lobe nodule FINDINGS: Unable to clearly identify nodules and groundglass areas identified on previous CT scans. There are coarse interstitial reticular opacities throughout both lungs predominating in the peripher y of the right mid lung field and the lower lung daniel. These findings appear somewhat more prominen t than on the previous examination of 01/20/2021. No pneumothorax identified. XR/XR chest 1V portable [id number] IMPRESSION: No acute chest abnormality. Reticular interstitial changes appear more prominent than on the previous exami nation. Groundglass densities and lung nodules identified on previous CTs are not readi ly identifiable on the current chest x-ray.
[2021-10-07 08:49] VITALS: BP 110/72; PULSE 70; RESP 16; O2SAT 92
--- NOTE | 2021-10-07 13:25 | ANE.PACU2 ---
Inpatient post-anesthesia follow up: Airway intact: Yes Vital signs: Temperature 97.4 F Pulse Rate 70 Respiratory Rate 16 Blood Pressure 110/72 Pulse Oximetry 92 Oxygen Delivery Me thod Room Air Oxygen Flow Rate Fraction of Inspir ed Oxygen Hydration adequate: Yes Nausea and vomiting: No Pain level: 1 Mental status: Baseline
== END 2021-10-07 09:17 | disposition home or self-care (01) ==
PROVIDERS: PCP Family Medicine; Visit Provider Internal Medicine Critical Care Medicine
PROC: 0BJ08ZZ Inspection of Tracheobronchial Tree, Via Natural or Artificial Opening Endoscopic (ICD-10-PCS; CPT 31622; principal; 2021-10-07 07:00)
PROC: BB4BZZZ Ultrasonography of Pleura (ICD-10-PCS; 2021-10-07 07:00)
DX: R91.8 Other nonspecific abnormal finding of lung field (principal); Z87.891 Personal history of nicotine dependence; I25.10 Atherosclerotic heart disease of native coronary artery without angina pectoris; Z95.1 Presence of aortocoronary bypass graft; J44.9 Chronic obstructive pulmonary disease, unspecified; N18.9 Chronic kidney disease, unspecified; Z79.82 Long term (current) use of aspirin; E78.5 Hyperlipidemia, unspecified; Z85.46 Personal history of malignant neoplasm of prostate; I25.2 Old myocardial infarction
CPT/HCPCS: 31627; 31628; 31652; 71045; 77011; 80500; 88108; 88305; 88307; J2370; J2405; J2704; J3010; J3490; J7030

== ENCOUNTER → 2021-12-04 08:27 | Outpatient (BNVA) | payer MEDICARE, BC, SELFPAY | PROVIDERS: PCP Family Medicine; Visit Provider Internal Medicine Pulmonary Disease | DX: J43.2 Centrilobular emphysema (principal); R91.1 Solitary pulmonary nodule; R06.02 Shortness of breath; Z87.891 Personal history of nicotine dependence; I25.10 Atherosclerotic heart disease of native coronary artery without angina pectoris; N18.9 Chronic kidney disease, unspecified; E78.5 Hyperlipidemia, unspecified | CPT/HCPCS: 99214 ==

== ENCOUNTER → 2021-12-11 11:24 | Outpatient (BNVA) | payer MEDICARE, BC, SELFPAY | PROVIDERS: PCP Family Medicine; Visit Provider Internal Medicine Cardiovascular Disease | DX: I25.810 Atherosclerosis of coronary artery bypass graft(s) without angina pectoris (principal); J43.2 Centrilobular emphysema; E78.5 Hyperlipidemia, unspecified; Z87.891 Personal history of nicotine dependence; I12.9 Hypertensive chronic kidney disease with stage 1 through stage 4 chronic kidney disease, or unspecified chronic kidney disease; N18.9 Chronic kidney disease, unspecified | CPT/HCPCS: 93005; 99214 ==

== ENCOUNTER 2021-12-26 08:25 | Outpatient (CLI) | payer MEDICARE, BC, SELFPAY ==
--- NOTE | 2021-12-26 08:30 | CT_ITS ---
WS: [id number] CT CHEST TECHNIQUE: Noncontrast CT of the chest with coronal and sagittal reformatted images. CLINICAL INFORMATION: lung nodule, CT needed for PET/CT approval COMPARISON: CT chest September 22, 2021 and PET/CT September 27, 2021 DLP: 784.[address] scans at [facility] use at least one of these dose optimization techniques: automated e xposure control; mA and/or kV adjustment per patient size (includes targeted exams where dose is matc hed to clinical indication); or iterative reconstruction. FINDINGS: Moderate aortic calcification. Normal caliber thoracic aorta. Proximal main pulmonary arter ies are slightly prominent and unchanged. Normal caliber descending thoracic aorta. No axillary lymph adenopathy. Adrenal glands are normal. Postoperative changes at the GE junction. Fatty atrophy of the pancreas. R IGHT upper lobe pulmonary nodule today appears slightly progressed and more dense measuring 14 mm in maximum dimension compared to 12 mm previous. Findings suspicious for enlarging neoplasm. Additional subpleural nodule in the LEFT upper lobe laterally is unchanged measuring approximately 9 mm in maxim um dimension. Additional slightly spiculated hazy opacities and subsolid nodules bilaterally are unchanged in appea oswald. Additional noncalcified nodule RIGHT lower lobe measuring 9 mm is unchanged. No other signific ant changes compared to previous. CT/CT chest wo con [id number] IMPRESSION: 1. Lobulated RIGHT upper lobe nodule appears more dense today and increased in size measuring 14 mm compared to 12 mm previous. Findings suspicious for progr essing neoplasm. This can be further evaluated PET/CT. 2. Previously described subsolid pulmonary nodules and groundglass opacities b ilaterally are unchanged. 3. Additional 9 mm LEFT upper lobe pulmonary nodule described on the prior PET /CT laterally is unchanged. 4. No mediastinal or hilar lymphadenopathy. 5. Postoperative changes at the GE junction. 6. Prior sternotomy with CABG.
--- NOTE | 2021-12-26 09:45 | XRR_ITS ---
PROCEDURE INFORMATION: Exam: XR Abdomen Exam date and time: 12/26/2021 9:15 AM Age: 81 years old Clinical indication: Other: Recurrent UTI; Additional info: Recurrent UTI, kub @ oz on 01/01/22 @ 930. Appt to follow TECHNIQUE: Imaging protocol: XR of the abdomen. Views: Frontal supine view of the abdomen. 1 View. COMPARISON: CR XR KUB [id number] 01/01/2021 8:39 AM FINDINGS: Tubes, catheters and devices: There is a catheter projecting over the pelvis on the right. Gastrointestinal tract: Bowel gas pattern is unremarkable. No sign of obstruction. Intraperitoneal space: There is vascular calcification in the pelvis. Surgical clips are seen in the pelvis. Organs: No definite renal or ureteral stone is visible. Bones/joints: There is moderate degenerative disease in the lumbar spine. XR/XR KUB [id number] IMPRESSION: 1. No acute findings. 2. Incidental findings above.
== END 2021-12-26 08:26 | disposition home or self-care (01) ==
PROVIDERS: PCP Family Medicine; Visit Provider Internal Medicine Pulmonary Disease
DX: N39.0 Urinary tract infection, site not specified (principal); R91.1 Solitary pulmonary nodule; Z95.1 Presence of aortocoronary bypass graft; Q61.02 Congenital multiple renal cysts; Z90.49 Acquired absence of other specified parts of digestive tract
CPT/HCPCS: 71250; 74018; 76770

== ENCOUNTER 2021-12-26 08:28 | Outpatient (CLI) | payer MEDICARE, BC, SELFPAY ==
--- NOTE | 2021-12-26 09:15 | US_ITS ---
WS: [id number] ULTRASOUND RENAL TECHNIQUE: Ultrasound examination of both kidneys. CLINICAL INFORMATION: RECURRENT UTI COMPARISON: None. FINDINGS: Small bilateral simple renal cysts the largest in the RIGHT upper pole measuring 1.5 x 1.7 x 1.3 cm and largest in the LEFT lower pole measuring 2.2 x 1.9 x 2.1 cm. RIGHT: Right kidney is normal in size and appearance. Echogenicity: Normal. Cortical thickness: 1.4 cm; Normal. Hydronephrosis: None. Perinephric fluid: None. Right kidney measures: 8.5 cm x 3.5 cm x 5.6 cm. LEFT: Left kidney is normal in size and appearance. Echogenicity: Normal. Cortical thickness: 1.7 cm; Normal. Hydronephrosis: None. Perinephric fluid: None. Left kidney measures: 9.9 cm x 4.6 cm x 5.9 cm. Normal visualized aorta. Prior cystectomy. US/US renal BI* [id number] IMPRESSION: 1. Small bilateral simple renal cysts. 2. No hydronephrosis in either kidney. 3. Prior cystectomy
== END 2021-12-26 08:29 | disposition home or self-care (01) ==
LOC: RAD 08:30
PROVIDERS: PCP Family Medicine; Visit Provider Urology
DX: N39.0 Urinary tract infection, site not specified (principal); Q61.02 Congenital multiple renal cysts; Z90.49 Acquired absence of other specified parts of digestive tract
CPT/HCPCS: 76770

== ENCOUNTER 2022-01-01 09:19 | Outpatient (CLI) | payer MEDICARE, BC, SELFPAY ==
[2022-01-01 09:50] LABS: Basophils % 0.3 %; Eosinophils # 0.2 10^3/uL (0.0-0.8); Eosinophils % 3.5 %; Hematocrit 43.3 % (42.0-52.0); Lymphocytes # 1.9 10^3/uL (0.8-4.8); Lymphocytes % 32.3 %; Mean Corpuscular HGB Conc 32.3 g/dL (30.0-36.0); Mean Corpuscular Hemoglobin 31.1 pg (28.0-34.0); Mean Corpuscular Volume 96.2 fl (80-94); Mean Platelet Volume 9.3 fL (7.4-10.4); Monocytes # 0.5 10^3/uL (0.2-0.9); Monocytes % 7.5 %; Neutrophils # 3.36 10^3/uL (1.8-7.7); Neutrophils % 56.1 %; Nucleated Red Blood Cells % 0 %; Platelet Count 174 10^3/cmm (130-400); Red Cell Distribution Width 13.5 % (12.1-15.1)
[2022-01-01 10:16] LABS: Alanine Aminotransferase 20 U/L (0-41); Alkaline Phosphatase 91 IU/L (40-130); Anion Gap 14.6 (5-19); Aspartate Amino Transferase 18 U/L (0-40); Blood Urea Nitrogen 18 mg/dL (8-23); Calcium 9.4 mg/dL (8.5-10.5); Carbon Dioxide 24 mmol/L (22-29); Chloride 102 mmol/L (98-107); Glucose 106 mg/dL (65-115); Osmolality Calculated 284 mOsm/kg (285-295); Potassium 4.6 mmol/L (3.5-5.1); Sodium 136 mmol/L (136-145); Total Bilirubin 0.5 mg/dL (0.15-1.2)
== END 2022-01-01 09:20 | disposition home or self-care (01) ==
LOC: LAB 09:24
PROVIDERS: PCP Family Medicine; Visit Provider Urology
DX: Z85.46 Personal history of malignant neoplasm of prostate (principal); N39.0 Urinary tract infection, site not specified; Z98.890 Other specified postprocedural states
CPT/HCPCS: 80053; 81003; 85025; 99213

== ENCOUNTER → 2022-01-08 13:13 | Outpatient (BNVA) | payer MEDICARE, BC, SELFPAY | PROVIDERS: PCP Family Medicine; Visit Provider Internal Medicine Pulmonary Disease | DX: R06.02 Shortness of breath (principal); J43.2 Centrilobular emphysema; R91.1 Solitary pulmonary nodule; Z87.891 Personal history of nicotine dependence; E78.5 Hyperlipidemia, unspecified | CPT/HCPCS: 99214 ==

== ENCOUNTER 2022-02-26 10:52 | Outpatient (RCR) | payer MEDICARE, BC, SELFPAY | END 2022-03-25 23:59 | disposition home or self-care (01) | LOC: PULRHB 10:52 | PROVIDERS: PCP Family Medicine; Visit Provider Internal Medicine Pulmonary Disease | DX: R91.1 Solitary pulmonary nodule (principal) | CPT/HCPCS: G0237; G0238; G0239 ==

== ENCOUNTER → 2022-03-09 09:14 | Outpatient (BNVA) | payer MEDICARE, BC, SELFPAY | PROVIDERS: PCP Family Medicine; Visit Provider Internal Medicine Pulmonary Disease | DX: R06.02 Shortness of breath (principal); J43.2 Centrilobular emphysema; R91.8 Other nonspecific abnormal finding of lung field; I25.10 Atherosclerotic heart disease of native coronary artery without angina pectoris; Z95.1 Presence of aortocoronary bypass graft; Z85.01 Personal history of malignant neoplasm of esophagus; Z87.891 Personal history of nicotine dependence | CPT/HCPCS: 99214 ==

== ENCOUNTER 2022-03-26 06:00 | Outpatient (RCR) | payer MEDICARE, BC, SELFPAY | END 2022-04-24 23:59 | disposition home or self-care (01) | LOC: PULRHB 06:00 | PROVIDERS: PCP Family Medicine; Visit Provider Internal Medicine Pulmonary Disease | DX: R91.1 Solitary pulmonary nodule (principal) | CPT/HCPCS: G0239 ==

== ENCOUNTER 2022-05-18 09:29 | Outpatient (CLI) | payer MEDICARE, BC, SELFPAY ==
--- NOTE | 2022-05-18 10:15 | CT_ITS ---
WS: [id number] CT CHEST TECHNIQUE: Noncontrast CT of the chest with coronal and sagittal reformatted images. CLINICAL INFORMATION: 3 month f/u after completing cancer Tx COMPARISON: CT chest December 26, 2021 PET/CT January 03, 2022 DLP: 781.[address] scans at [facility] use at least one of these dose optimization techniques: automated e xposure control; mA and/or kV adjustment per patient size (includes targeted exams where dose is matc hed to clinical indication); or iterative reconstruction. FINDINGS: Previously described RIGHT upper lobe pulmonary nodule has decreased in size today measurin g 9 mm in maximum dimension. Previously this measured 12 x 14 mm. This is visually decreased in size. A few scattered groundglass opacities in both lungs likely inflammatory. Additional previously descr ibed pulmonary nodules measuring up to 9 mm are unchanged. Aortic calcification. Normal caliber thoracic aorta. Proximal main pulmonary arteries normal caliber. No axillary lymphadenopathy. Adrenal glands are normal. Postoperative changes at the GE junction. Fatty atrophy of the pancreas. CT/CT chest wo con [id number] IMPRESSION: 1. Previously described FDG avid RIGHT upper lobe pulmonary nodule has decreas ed in size today with decreased density measuring approximately 9 mm in maximum dimension. Recommend continued surveillance with 3-[address] follow-up. 2. Remainder of the above-described pulmonary nodules are unchanged from previ ous measuring up to 9 mm in size. 3. Patchy hazy groundglass opacities bilaterally similar to previous. 4. No other remarkable interval changes.
== END 2022-05-18 09:30 | disposition home or self-care (01) ==
LOC: RAD 09:29
PROVIDERS: PCP Family Medicine; Visit Provider Internal Medicine Pulmonary Disease
DX: R91.1 Solitary pulmonary nodule (principal)
CPT/HCPCS: 71250

== ENCOUNTER → 2022-05-28 11:39 | Outpatient (BNVA) | payer MEDICARE, BC, SELFPAY | PROVIDERS: PCP Family Medicine; Visit Provider Internal Medicine Cardiovascular Disease | DX: I25.810 Atherosclerosis of coronary artery bypass graft(s) without angina pectoris (principal); R03.0 Elevated blood-pressure reading, without diagnosis of hypertension; E78.5 Hyperlipidemia, unspecified; J43.2 Centrilobular emphysema; Z87.891 Personal history of nicotine dependence; I25.2 Old myocardial infarction; Z95.1 Presence of aortocoronary bypass graft | CPT/HCPCS: 99214 ==

== ENCOUNTER 2022-06-17 10:31 | Emergency (ER) | payer MEDICARE, BC, SELFPAY ==
[2022-06-17 10:53] VITALS: BP 137/114; PULSE 77; RESP 16; TEMP 36.6; O2SAT 91; BMI 30.3
--- NOTE | 2022-06-17 11:18 | W.ED.GENADLT ---
HPI - General Adult General: Chief complaint: General Medical Stated complaint: congestion, cough, chills Time Seen by Provider: 06/17/22 10:59 History of Present Illness: 81-year-old male presents the emergency department chief complaint of ongoing cough congestion shortness of breath patient reports he has been recently treated for lung cancer with 3 doses of radiation he reports has been seen by his primary care doctor twice now which she was diagnosed with presumptive bronchitis started on 2 different antibiotic therapies as well as steroids patient reports that originally he was on a Z-Roberto as well as prednisone for approximately 1 week which he subsequently followed back with his primary care doctor after his got him sick in which he was on a prescription of doxycycline as well as prednisone. Patient has a longstanding history of COPD not oxygen dependent he does report having a significant history of cardiac disease including open heart bypass. He does not recall having recent chest pains or palpitations or shortness of the shortness of breath he does report a mild nonproductive cough with thick sputum production. He does report having an ongoing low-grade fever has been ongoing the last several days. Patient reports his got him back [place] does report he had about a week of reprieve from the illness prior to returning patient reports generalized malaise and fatigue with no other associated symptoms. Associated symptoms: Reports dyspnea and malaise; Deny chest pain, headache(s), nausea, rash, palpitations or vomiting Review of Systems General: Reports: 10 or more systems reviewed and unremarkable except in HPI and below Const: Reports: fever(s), chills, fatigue and malaise Eyes: Denies: change in vision or blurry vision Card: Denies: chest pain or palpitations Resp: Reports: dyspnea, productive cough, non-productive cough, wheezing and chest congestion GI: Denies: abdominal pain, nausea or vomiting : Denies: flank pain Musc: Denies: extremity pain or extremity swelling Skin/Breast: Denies: rash or pruritus Neuro: Denies: headache(s) Psych: Denies: anxiety or depression Pastor/Lymph: Denies: easy bleeding All/Imm: Denies: urticaria, throat swelling or facial swelling PFS ED PFSH: Medical History Acquired hydronephrosis CAD (coronary artery disease) CKD (chronic kidney disease) COPD (chronic obstructive pulmonary disease) Coronary artery disease involving autologous artery coronary bypass graft Patient [facility] Dyslipidemia Dyspnea on exertion Esophageal cancer H/O coronary angiogram Herpes ocular History of prostate cancer Myocardial infarct, old Prostate cancer Recurrent UTI (urinary tract infection) Surgical History History of cervical spinal surgery History of surgery on arm History of urinary diversion procedure History of urostomy S/P colostomy S/P coronary artery bypass graft x 1 S/P coronary artery bypass graft x 1 S/P gastric surgery S/P wrist surgery Family History Father Heart disease CAD (coronary artery disease), Onset Age: 59 Sister Anesthesia complication CAD (coronary artery disease), Onset Age: 50 Diabetes Brother CAD (coronary artery disease), Onset Age: 70 Cancer Lung disease Denies family history of Clotting disorder Dementia Chronic kidney disease (CKD) Suicide Bleeding disorder Stroke Social History Smoking and tobacco status: former smoker Quit status (tobacco): has quit using tobacco Year quit tobacco: 2011 Former quit date comment: 2.5ppd x 55 years Alcohol intake: never Adopted: No Caregiver/support person: No Lives independently: No Household members: spouse Marital status: Current occupational status: retired History of recent travel: No Current gender identity: Male Physical Exam Const: COMMON NORMALS: no acute distress, patient oriented x3 and healthy appearing HENMT: COMMON NORMALS: normocephalic and atraumatic HEAD & SCALP: normocephalic and atraumatic Eye: COMMON NORMALS: Equal, round and reactive pupils present and EOMs intact bilaterally PUPIL: Yes Equal, round and reactive pupils present Neck/C-Spine: COMMON NORMALS: full ROM, supple and no JVD Lymph: LYMPHATIC: no lymphadenopathy noted Chest: COMMONS NORMALS: normal inspection of the chest and normal palpation of entire chest wall Resp: OTHER: Patient has moderate expiratory wheezing present bilaterally with mild questionable crackles appreciated mild tachypnea apparent however patient does not appear to be obvious acute distress no stridor noted. Cardio: COMMON NORMALS: no JVD, regular rate and regular rhythm RATE: regular rate RHYTHM: regular rhythm GI: COMMON NORMALS: Normal to inspection, nondistended, normoactive bowel sounds present, Soft to palpation and non-tender INSPECTION: Yes normal to inspection PALPATION: Yes Soft to palpation : COMMON NORMALS: Yes no CVA tenderness BLADDER/KIDNEY EXAM: Yes no CVA tenderness Back/Pelvis: COMMON NORMALS: no CVA tenderness Extremity: COMMON NORMALS: normal to inspection and full ROM Neuro: COMMON NORMALS: patient oriented x3, CN's II-XII intact bilaterally, moves all extremities and no focal motor deficits Psych: COMMON NORMALS: mental status grossly normal, Normal thought process present, cooperative and normal affect THOUGHT PROCESS: Normal thought process present Skin: COMMON NORMALS: no rashes or lesions noted GENERAL SKIN EXAM: no rashes or lesions noted Course Vital Signs: Vital signs: Vital Signs Temperature 97.9 F 06/17/22 10:53 Pulse Rate 85 06/17/22 14:30 Respiratory Rate 16 06/17/22 11:47 Blood Pressure 128/62 06/17/22 14:30 Pulse Oximetry 92 06/17/22 14:30 Oxygen Delivery Me thod 06/17/22 14:05 MDM - General Adult Medical Decision Making Do the patient sit in the condition will be established laboratories will be obtained patient does appear to have a case of possible bronchitis or pneumonia unclear whether or not there is no bacterial or viral origin we will be obtaining a respiratory pathogen panel on the patient as well as to check for RSV patient will additionally have a basic cardiac work-up due to his significant cardiac history we will continue to follow Patient's lab work and imaging point patient having more acute bronchitis most likely COPD exacerbation due to inflammation patient's respiratory pathogen screen test came back negative his cardiac troponins appear flat with a negative delta patient upon reassessment is much improved which wheezing is much improved at this time the patient be subsequent discharged home will be started him on a longer steroid taper Tessalon Perles as well as additional Ventolin. Did advise of the patient may need further follow-up with his plate slitter and inspector for inhaled steroid usage in which he should follow follow-up in 3 to 5 days in which patient was advised to return the interim if any of his symptoms persist or worse. Lab Data 06/17/22 13:10 06/17/22 13:10 Radiology Impressions Chest X-Ray 06/17/22 13:35 IMPRESSION: 1. Linear densities right mid lung field and left lower lobe atelectasis or fibrosis 2. Metallic sternotomy wires are present. Laboratory Results WBC 8.7 10^3/uL (4.0-10.0) 06/17/22 13:10 RBC 4.21 10^6/uL (4.1-5.3) 06/17/22 13:10 Hgb 13.4 g/dL (11.7-16.6) 06/17/22 13:10 Hct 41.6 % (42.0-52.0) L 06/17/22 13:10 MCV 98.8 fl (80-94) H 06/17/22 13:10 MCH 31.8 pg (28.0-34.0) 06/17/22 13:10 MCHC 32.2 g/dL (30.0-36.0) 06/17/22 13:10 RDW 12.8 % (12.1-15.1) 06/17/22 13:10 Plt Count 154 10^3/cmm (130-400) 06/17/22 13:10 MPV 9.2 fL (7.4-10.4) 06/17/22 13:10 Neut % (Auto) 85.5 % 06/17/22 13:10 Lymph % (Auto) 9.4 % 06/17/22 13:10 [place] % (Auto) 3.2 % 06/17/22 13:10 Eos % (Auto) 1.2 % 06/17/22 13:10 Baso % (Auto) 0.2 % 06/17/22 13:10 Neut # (Auto) 7.42 10^3/uL (1.8-7.7) 06/17/22 13:10 Lymph # (Auto) 0.8 10^3/uL (0.8-4.8) 06/17/22 13:10 [place] # (Auto) 0.3 10^3/uL (0.2-0.9) 06/17/22 13:10 Eos # (Auto) 0.1 10^3/uL (0.0-0.8) 06/17/22 13:10 Baso # (Auto) 0.0 10^3/uL (0.0-0.1) 06/17/22 13:10 Nucleated RBC % (auto) 0 % 06/17/22 13:10 Nucleated RBCs # 0.0 /100WBC 06/17/22 13:10 Sodium 137 mmol/L (136-145) 06/17/22 13:10 Potassium 4.5 mmol/L (3.5-5.1) 06/17/22 13:10 Chloride 102 mmol/L (98-107) 06/17/22 13:10 Carbon Dioxide 26 mmol/L (22-29) 06/17/22 13:10 Anion Gap 13.5 (5-19) 06/17/22 13:10 BUN 18 mg/dL (8-23) 06/17/22 13:10 Creatinine 1.4 mg/dL (0.7-1.2) H 06/17/22 13:10 GFR Calculation Not Reportable 06/17/22 13:10 Glucose 116 mg/dL (65-115) H 06/17/22 13:10 Calculated Osmolality 287 mOsm/kg (285-295) 06/17/22 13:10 Calcium 9.5 mg/dL (8.5-10.5) 06/17/22 13:10 Total Bilirubin 0.6 mg/dL (0.15-1.2) 06/17/22 13:10 AST 18 U/L (0-40) 06/17/22 13:10 ALT 21 U/L (0-41) 06/17/22 13:10 Alkaline Phosphatase 76 U/L (40-130) 06/17/22 13:10 Troponin T Baseline 15 ng/L (0-15) 06/17/22 13:10 Troponin T 120 Minute 13.70 ng/L (0-15) 06/17/22 15:01 NT-Pro-B Natriuret Pep 367 pg/mL (0-450) 06/17/22 13:10 Total Protein 6.6 g/dL (6.6-8.7) 06/17/22 13:10 Albumin 3.6 g/dL (3.5-5.2) 06/17/22 13:10 Globulin 3.0 g/dL (1.3-4.6) 06/17/22 13:10 Nasal Influ A H1 2008 PCR Not detected (NOT DETECT) 06/17/22 14:17 Adenovirus (PCR) Not detected (NOT DETECT) 06/17/22 14:17 C. pneumoniae DNA (PCR) Not detected (NOT DETECT) 06/17/22 14:17 Coronavirus 229E (PCR) Not detected (NOT DETECT) 06/17/22 14:17 Human Metapneumovir PCR Not detected (NOT DETECT) 06/17/22 14:17 Influenza A (H1) PCR Not detected (NOT DETECT) 06/17/22 14:17 Influenza A (H3) PCR Not detected (NOT DETECT) 06/17/22 14:17 Influenza Type A (PCR) Not detected (NOT DETECT) 06/17/22 14:17 Influenza Type B (PCR) Not detected (NOT DETECT) 06/17/22 14:17 M. pneumoniae (PCR) Not detected (NOT DETECT) 06/17/22 14:17 Parainfluenza 1 (PCR) Not detected (NOT DETECT) 06/17/22 14:17 Parainfluenza 2 (PCR) Not detected (NOT DETECT) 06/17/22 14:17 Parainfluenza 3 (PCR) Not detected (NOT DETECT) 06/17/22 14:17 Parainfluenza 4 (PCR) Not detected (NOT DETECT) 06/17/22 14:17 RSV Type A (PCR) Not detected (NOT DETECT) 06/17/22 14:17 RSV Type B (PCR) Not detected (NOT DETECT) 06/17/22 14:17 Entero/Rhino (PCR) Not detected (NOT DETECT) 06/17/22 14:17 SARS-CoV-2 (PCR) Not detected (NOT DETECT) 06/17/22 14:17 Discharge Plan Discharge Patient Disposition: Home Clinical Impression: Acute bronchitis, COPD exacerbation Condition: Stable Prescriptions: New prednisone 10 mg tablets,dose pack See Rx Instructions .ROUTE .COMPLEX Qty: 21 0RF Rx Instructions: prednisone 5 mg: take 8 tablets (40 mg) on Day 1; 7 tablets (35 mg) on Day 2; then decrease by 1 tablet every day until finished benzonatate 100 mg capsule 100 mg PO BID PRN (Reason: cough) Qty: 20 0RF albuterol sulfate 2.5 mg /3 mL (0.083 %) solution for nebulization 2.5 mg inhalation QID PRN (Reason: shortness of breath or wheezing) 7 Days Qty: 84 0RF No Action Anoro Ellipta 62.5-25 mcg/actuation blister with device 1 inh INHALATION DAILY desloratadine [Clarinex] 5 mg tablet 5 mg PO DAILY multivitamin Tablet 1 tab PO DAILY albuterol sulfate 1.25 mg/3 mL solution for nebulization 1.25 mg INHALATION QID PRN (Reason: Wheezing) albuterol sulfate 90 mcg/actuation HFA aerosol inhaler 1 inh INHALATION Q4H PRN (Reason: Wheezing) aspirin [Adult Low Dose Aspirin] 81 mg tablet,delayed release (DR/EC) 81 mg PO DAILY gabapentin 400 mg capsule 400 mg PO BID (DME) QUERCETIN/BROMELIAN 500MG 0 .Route .MEDSUPPLY ascorbate calcium (vitamin C) 500 mg tablet 500 mg PO BID nitroglycerin [Nitrostat] 0.4 mg tablet, sublingual 0.4 mg SUBLINGUAL DIRECTED PRN (Reason: chest pain) Qty: 25 3RF carvedilol 12.5 mg tablet 12.5 mg PO BID Qty: 200 3RF isosorbide mononitrate 30 mg tablet extended release 24 hr 15 mg PO BID Qty: 100 3RF ketoconazole 2 % cream 1 applic topical BID Qty: 30 6RF Rx Instructions: Apply to red, scaly areas on face 1-2 times daily ramipril 2.5 mg capsule 2.5 mg PO DAILY Qty: 100 3RF methenamine hippurate 1 gram tablet 1 g PO BID ciprofloxacin HCl 500 mg tablet 500 mg PO BID Lipitor 10 mg tablet 10 mg PO QPM Discharge Orders: Discharge ED (Routine); Ordered 06/17/22 Ordered By: Xavier Harris Referrals: Rohit Suárez MD [Primary Care Provider] - 4-7 days Discharge Diet: Usual diet Discharge Activity: Resume usual activity Patient Instructions: Acute Bronchitis (ED), COPD (Chronic Obstructive Pulmonary Disease) (ED) Activity Restrictions/Additional Instructions: Please follow-up with your primary care doctor in 3 to 5 days, take medications as prescribed and please return to the ER if any of her symptoms persist or worse. Coding Level of Care Code ED Wire Galvanizer for Avi Lopez Exam Comprehensive
--- NOTE | 2022-06-17 11:24 | ECG_ITS ---
[facility] Test Date: 2022-06-17 Pat Name: Xavier Borges Department: Room: Gender: Male Criminal Investigative Agent: : [id number] Requested By: Xavier Harris Order Number: [id number] Godwin MD: Kapil Moody M.D. 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 [email or web address]
[2022-06-17] MEDS: sodium chloride 0.9% 1,000 ML 100 ML IV (11:43)
[2022-06-17] MEDS: ipratropium-albuterol 3 mL Neb INHALATION (11:44)
[2022-06-17 11:47] VITALS: PULSE 78; RESP 16; O2SAT 93
[2022-06-17 11:50] VITALS: PULSE 79
[2022-06-17 13:24] LABS: Basophils % 0.2 %; Eosinophils # 0.1 10^3/uL (0.0-0.8); Eosinophils % 1.2 %; Hematocrit 41.6 % (42.0-52.0); Hemoglobin 13.4 g/dL (11.7-16.6); Lymphocytes # 0.8 10^3/uL (0.8-4.8); Lymphocytes % 9.4 %; Mean Corpuscular HGB Conc 32.2 g/dL (30.0-36.0); Mean Corpuscular Hemoglobin 31.8 pg (28.0-34.0); Mean Corpuscular Volume 98.8 fl (80-94); Mean Platelet Volume 9.2 fL (7.4-10.4); Monocytes # 0.3 10^3/uL (0.2-0.9); Monocytes % 3.2 %; Neutrophils # 7.42 10^3/uL (1.8-7.7); Neutrophils % 85.5 %; Nucleated Red Blood Cells % 0 %; Platelet Count 154 10^3/cmm (130-400); Red Blood Count 4.21 10^6/uL (4.1-5.3); Red Cell Distribution Width 12.8 % (12.1-15.1); White Blood Count 8.7 10^3/uL (4.0-10.0)
--- NOTE | 2022-06-17 13:35 | XRR_ITS ---
PROCEDURE INFORMATION: Exam: XR Chest Exam date and time: 06/17/2022 1:51 PM Age: 81 years old Clinical indication: Shortness of breath; Additional info: SOB TECHNIQUE: Imaging protocol: Radiologic exam of the chest. Views: 2 views. COMPARISON: CR XR chest 2V* [id number] 06/03/2022 10:50 AM FINDINGS: Lungs: Linear parenchymal densities seen in the right mid lung feel slightly increased since prior examination. Similar density is seen in the left lower lobe these findings are stable since prior examination and may represent atelectasis and or fibrosis Pleural spaces: Unremarkable. No pleural effusion. No pneumothorax. Heart/Mediastinum: Unremarkable. No cardiomegaly. Bones/joints: Metallic sternotomy wires are present. XR/XR chest 2V* [id number] IMPRESSION: 1. Linear densities right mid lung field and left lower lobe atelectasis or fibrosis 2. Metallic sternotomy wires are present.
[2022-06-17 13:47] LABS: Troponin(5th) Baseline 15 ng/L (0-15)
[2022-06-17 13:57] LABS: Alanine Aminotransferase 21 U/L (0-41); Albumin Level 3.6 g/dL (3.5-5.2); Alkaline Phosphatase 76 U/L (40-130); Anion Gap 13.5 (5-19); Aspartate Amino Transferase 18 U/L (0-40); Blood Urea Nitrogen 18 mg/dL (8-23); Calcium 9.5 mg/dL (8.5-10.5); Carbon Dioxide 26 mmol/L (22-29); Chloride 102 mmol/L (98-107); Glucose 116 mg/dL (65-115); NT Pro B Type Natriuretic Pept 367 pg/mL (0-450); Osmolality Calculated 287 mOsm/kg (285-295); Potassium 4.5 mmol/L (3.5-5.1); Sodium 137 mmol/L (136-145); Total Bilirubin 0.6 mg/dL (0.15-1.2); Total Protein 6.6 g/dL (6.6-8.7)
[2022-06-17 14:05] VITALS: BP 128/62; PULSE 81; O2SAT 94
[2022-06-17 14:30] VITALS: BP 128/62; PULSE 85; O2SAT 92
[2022-06-17 16:01] LABS: Adenovirus Not Detected (NOT DETECT); Chlamydia Pneumoniae Not Detected (NOT DETECT); Coronavirus 229E,HKU1,NL63,OC4 Not Detected (NOT DETECT); Human Metapneumovirus Not Detected (NOT DETECT); Human Rhinovirus/Enterovirus Not Detected (NOT DETECT); Influenza A Not Detected (NOT DETECT); Influenza A H1 Not Detected (NOT DETECT); Influenza A H1-2009 Not Detected (NOT DETECT); Influenza A H3 Not Detected (NOT DETECT); Influenza B Not Detected (NOT DETECT); Mycoplasma Pneumoniae Not Detected (NOT DETECT); Parainfluenza Virus Type 1 Not Detected (NOT DETECT); Parainfluenza Virus Type 2 Not Detected (NOT DETECT); Parainfluenza Virus Type 3 Not Detected (NOT DETECT); Parainfluenza Virus Type 4 Not Detected (NOT DETECT); Respiratory Syncytial Virus A Not Detected (NOT DETECT); Respiratory Syncytial Virus B Not Detected (NOT DETECT); SARS-COV-2 Not Detected (NOT DETECT)
[2022-06-17 16:32] VITALS: BP 134/86; PULSE 80; O2SAT 94
--- NOTE | 2022-06-22 14:09 | W.ED.GENADLT ---
HPI - General Adult General: Chief complaint: General Medical Stated complaint: congestion, cough, chills Time Seen by Provider: 06/17/22 10:59 History of Present Illness: 81-year-old male presents emergency department chief complaint of cough congestion shortness of breath is been ongoing for proxy 1 month patient presents to the ER for further assessment and management. Patient does report having a known history of underlying lung issues. As well as cardiac issues. He does not recall any actual chest pains with his shortness of breath. Associated symptoms: Reports dyspnea; Deny chest pain, headache(s), malaise, nausea, rash, palpitations or vomiting Review of Systems General: Reports: 10 or more systems reviewed and unremarkable except in HPI and below Const: Denies: fever(s), chills, fatigue or malaise Eyes: Denies: change in vision or blurry vision Card: Denies: chest pain or palpitations Resp: Reports: dyspnea, productive cough and wheezing GI: Denies: abdominal pain, nausea or vomiting : Denies: flank pain Musc: Denies: extremity pain or extremity swelling Skin/Breast: Denies: rash or pruritus Neuro: Denies: headache(s) Psych: Denies: anxiety or depression Pastor/Lymph: Denies: easy bleeding All/Imm: Denies: urticaria, throat swelling or facial swelling PFSH ED PFSH: Medical History Acquired hydronephrosis CAD (coronary artery disease) CKD (chronic kidney disease) COPD (chronic obstructive pulmonary disease) Coronary artery disease involving autologous artery coronary bypass graft Patient had a four-vessel coronary bypass surgery in 2004 in [facility]. Dyslipidemia Dyspnea on exertion Esophageal cancer H/O coronary angiogram Herpes ocular History of prostate cancer Myocardial infarct, old Prostate cancer Recurrent UTI (urinary tract infection) Surgical History History of cervical spinal surgery History of surgery on arm History of urinary diversion procedure History of urostomy S/P colostomy S/P coronary artery bypass graft x 1 S/P coronary artery bypass graft x 1 S/P gastric surgery S/P wrist surgery Family History Father Heart disease CAD (coronary artery disease), Onset Age: 59 Sister Anesthesia complication CAD (coronary artery disease), Onset Age: 50 Diabetes Brother CAD (coronary artery disease), Onset Age: 70 Cancer Lung disease Denies family history of Clotting disorder Dementia Chronic kidney disease (CKD) Suicide Bleeding disorder Stroke Social History Smoking and tobacco status: former smoker Quit status (tobacco): has quit using tobacco Year quit tobacco: 2011 Former quit date comment: 2.5ppd x 55 years Alcohol intake: never Adopted: No Caregiver/support person: No Lives independently: No Household members: spouse Marital status: Current occupational status: retired History of recent travel: No Current gender identity: Male Physical Exam Const: COMMON NORMALS: no acute distress, patient oriented x3 and healthy appearing HENMT: COMMON NORMALS: normocephalic and atraumatic HEAD & SCALP: normocephalic and atraumatic Eye: COMMON NORMALS: Equal, round and reactive pupils present and EOMs intact bilaterally PUPIL: Yes Equal, round and reactive pupils present Neck/C-Spine: COMMON NORMALS: full ROM, supple and no JVD Lymph: LYMPHATIC: no lymphadenopathy noted Chest: COMMONS NORMALS: normal inspection of the chest and normal palpation of entire chest wall Resp: OTHER: Moderate wheezing appreciated exam mild tachypnea apparent Cardio: COMMON NORMALS: no JVD, regular rate and regular rhythm RATE: regular rate RHYTHM: regular rhythm GI: COMMON NORMALS: Normal to inspection, nondistended, normoactive bowel sounds present, Soft to palpation and non-tender INSPECTION: Yes normal to inspection PALPATION: Yes Soft to palpation : COMMON NORMALS: Yes no CVA tenderness BLADDER/KIDNEY EXAM: Yes no CVA tenderness Back/Pelvis: COMMON NORMALS: no CVA tenderness Extremity: COMMON NORMALS: normal to inspection and full ROM Neuro: COMMON NORMALS: patient oriented x3, CN's II-XII intact bilaterally, moves all extremities and no focal motor deficits Psych: COMMON NORMALS: mental status grossly normal, Normal thought process present, cooperative and normal affect THOUGHT PROCESS: Normal thought process present Skin: COMMON NORMALS: no rashes or lesions noted GENERAL SKIN EXAM: no rashes or lesions noted Course Vital Signs: Vital signs: Vital Signs Temperature 97.9 F 06/17/22 10:53 Pulse Rate 80 06/17/22 16:32 Respiratory Rate 16 06/17/22 11:47 Blood Pressure 134/86 06/17/22 16:32 Pulse Oximetry 94 06/17/22 16:32 Oxygen Delivery Me thod 06/17/22 14:05 MDM - General Adult Medical Decision Making Patient was found to have a COPD exacerbation mild bronchitis questionable pneumonia patient will be treated quarreling advised further follow-up primary care in 2 to 3 days which patient was advised return the interim if any of his symptoms persist or worse. Lab Data 06/17/22 13:10 06/17/22 13:10 Radiology Impressions Chest X-Ray 06/17/22 13:35 IMPRESSION: 1. Linear densities right mid lung field and left lower lobe atelectasis or fibrosis 2. Metallic sternotomy wires are present. Laboratory Results WBC 8.7 10^3/uL (4.0-10.0) 06/17/22 13:10 RBC 4.21 10^6/uL (4.1-5.3) 06/17/22 13:10 Hgb 13.4 g/dL (11.7-16.6) 06/17/22 13:10 Hct 41.6 % (42.0-52.0) L 06/17/22 13:10 MCV 98.8 fl (80-94) H 06/17/22 13:10 MCH 31.8 pg (28.0-34.0) 06/17/22 13:10 MCHC 32.2 g/dL (30.0-36.0) 06/17/22 13:10 RDW 12.8 % (12.1-15.1) 06/17/22 13:10 Plt Count 154 10^3/cmm (130-400) 06/17/22 13:10 MPV 9.2 fL (7.4-10.4) 06/17/22 13:10 Neut % (Auto) 85.5 % 06/17/22 13:10 Lymph % (Auto) 9.4 % 06/17/22 13:10 [place] % (Auto) 3.2 % 06/17/22 13:10 Eos % (Auto) 1.2 % 06/17/22 13:10 Baso % (Auto) 0.2 % 06/17/22 13:10 Neut # (Auto) 7.42 10^3/uL (1.8-7.7) 06/17/22 13:10 Lymph # (Auto) 0.8 10^3/uL (0.8-4.8) 06/17/22 13:10 [place] # (Auto) 0.3 10^3/uL (0.2-0.9) 06/17/22 13:10 Eos # (Auto) 0.1 10^3/uL (0.0-0.8) 06/17/22 13:10 Baso # (Auto) 0.0 10^3/uL (0.0-0.1) 06/17/22 13:10 Nucleated RBC % (auto) 0 % 06/17/22 13:10 Nucleated RBCs # 0.0 /100WBC 06/17/22 13:10 Sodium 137 mmol/L (136-145) 06/17/22 13:10 Potassium 4.5 mmol/L (3.5-5.1) 06/17/22 13:10 Chloride 102 mmol/L (98-107) 06/17/22 13:10 Carbon Dioxide 26 mmol/L (22-29) 06/17/22 13:10 Anion Gap 13.5 (5-19) 06/17/22 13:10 BUN 18 mg/dL (8-23) 06/17/22 13:10 Creatinine 1.4 mg/dL (0.7-1.2) H 06/17/22 13:10 GFR Calculation Not Reportable 06/17/22 13:10 Glucose 116 mg/dL (65-115) H 06/17/22 13:10 Calculated Osmolality 287 mOsm/kg (285-295) 06/17/22 13:10 Calcium 9.5 mg/dL (8.5-10.5) 06/17/22 13:10 Total Bilirubin 0.6 mg/dL (0.15-1.2) 06/17/22 13:10 AST 18 U/L (0-40) 06/17/22 13:10 ALT 21 U/L (0-41) 06/17/22 13:10 Alkaline Phosphatase 76 U/L (40-130) 06/17/22 13:10 Troponin T Baseline 15 ng/L (0-15) 06/17/22 13:10 Troponin T 120 Minute 13.70 ng/L (0-15) 06/17/22 15:01 Delta Troponin T -2.30 ABS# (0-10) L 06/17/22 15:01 NT-Pro-B Natriuret Pep 367 pg/mL (0-450) 06/17/22 13:10 Total Protein 6.6 g/dL (6.6-8.7) 06/17/22 13:10 Albumin 3.6 g/dL (3.5-5.2) 06/17/22 13:10 Globulin 3.0 g/dL (1.3-4.6) 06/17/22 13:10 Nasal Influ A H1 2009 PCR Not detected (NOT DETECT) 06/17/22 14:17 Adenovirus (PCR) Not detected (NOT DETECT) 06/17/22 14:17 C. pneumoniae DNA (PCR) Not detected (NOT DETECT) 06/17/22 14:17 Coronavirus 229E (PCR) Not detected (NOT DETECT) 06/17/22 14:17 Human Metapneumovir PCR Not detected (NOT DETECT) 06/17/22 14:17 Influenza A (H1) PCR Not detected (NOT DETECT) 06/17/22 14:17 Influenza A (H3) PCR Not detected (NOT DETECT) 06/17/22 14:17 Influenza Type A (PCR) Not detected (NOT DETECT) 06/17/22 14:17 Influenza Type B (PCR) Not detected (NOT DETECT) 06/17/22 14:17 M. pneumoniae (PCR) Not detected (NOT DETECT) 06/17/22 14:17 Parainfluenza 1 (PCR) Not detected (NOT DETECT) 06/17/22 14:17 Parainfluenza 2 (PCR) Not detected (NOT DETECT) 06/17/22 14:17 Parainfluenza 3 (PCR) Not detected (NOT DETECT) 06/17/22 14:17 Parainfluenza 4 (PCR) Not detected (NOT DETECT) 06/17/22 14:17 RSV Type A (PCR) Not detected (NOT DETECT) 06/17/22 14:17 RSV Type B (PCR) Not detected (NOT DETECT) 06/17/22 14:17 Entero/Rhino (PCR) Not detected (NOT DETECT) 06/17/22 14:17 SARS-CoV-2 (PCR) Not detected (NOT DETECT) 06/17/22 14:17 Discharge Plan Discharge Patient Disposition: Home Clinical Impression: Acute bronchitis, COPD exacerbation Condition: Stable Prescriptions: New prednisone 10 mg tablets,dose pack See Rx Instructions .ROUTE .COMPLEX Qty: 21 0RF Rx Instructions: prednisone 5 mg: take 8 tablets (40 mg) on Day 1; 7 tablets (35 mg) on Day 2; then decrease by 1 tablet every day until finished benzonatate 100 mg capsule 100 mg PO BID PRN (Reason: cough) Qty: 20 0RF No Action Anoro Ellipta 62.5-25 mcg/actuation blister with device 1 inh INHALATION DAILY desloratadine [Clarinex] 5 mg tablet 5 mg PO DAILY multivitamin Tablet 1 tab PO DAILY albuterol sulfate 1.25 mg/3 mL solution for nebulization 1.25 mg INHALATION QID PRN (Reason: Wheezing) albuterol sulfate 90 mcg/actuation HFA aerosol inhaler 1 inh INHALATION Q4H PRN (Reason: Wheezing) aspirin [Adult Low Dose Aspirin] 81 mg tablet,delayed release (DR/EC) 81 mg PO DAILY gabapentin 400 mg capsule 400 mg PO BID (DME) QUERCETIN/BROMELIAN 500MG 0 .Route .MEDSUPPLY ascorbate calcium (vitamin C) 500 mg tablet 500 mg PO BID nitroglycerin [Nitrostat] 0.4 mg tablet, sublingual 0.4 mg SUBLINGUAL DIRECTED PRN (Reason: chest pain) Qty: 25 3RF isosorbide mononitrate 30 mg tablet extended release 24 hr 15 mg PO BID Qty: 100 3RF ketoconazole 2 % cream 1 applic topical BID Qty: 30 6RF Rx Instructions: Apply to red, scaly areas on face 1-2 times daily ramipril 2.5 mg capsule 2.5 mg PO DAILY Qty: 100 3RF methenamine hippurate 1 gram tablet 1 g PO BID Qty: 180 0RF carvedilol 12.5 mg tablet 12.5 mg PO BID Qty: 200 3RF Lipitor 10 mg tablet 10 mg PO QPM Qty: 100 3RF ciprofloxacin HCl 500 mg tablet 500 mg PO BID Discharge Orders: Discharge ED (Routine); Ordered 06/17/22 Ordered By: Xavier Harris Referrals: Rohit Suárez MD [Primary Care Provider] - 4-7 days Discharge Diet: Usual diet Discharge Activity: Resume usual activity Patient Instructions: Acute Bronchitis (ED), COPD (Chronic Obstructive Pulmonary Disease) (ED) Activity Restrictions/Additional Instructions: Please follow-up with your primary care doctor in 3 to 5 days, take medications as prescribed and please return to the ER if any of her symptoms persist or worse. Coding Level of Care Code ED Material Requisitioner for Avi Lopez
== END 2022-06-17 16:30 | disposition home or self-care (01) ==
PROVIDERS: Emergency Provider Emergency Medicine; PCP Family Medicine
DX: J44.0 Chronic obstructive pulmonary disease with (acute) lower respiratory infection (principal); J20.9 Acute bronchitis, unspecified; J44.1 Chronic obstructive pulmonary disease with (acute) exacerbation; Z79.82 Long term (current) use of aspirin; Z20.822 Contact with and (suspected) exposure to COVID-19; Z87.891 Personal history of nicotine dependence; I25.10 Atherosclerotic heart disease of native coronary artery without angina pectoris; E78.5 Hyperlipidemia, unspecified; Z85.46 Personal history of malignant neoplasm of prostate; Z85.01 Personal history of malignant neoplasm of esophagus; I25.2 Old myocardial infarction; Z95.1 Presence of aortocoronary bypass graft; Z85.118 Personal history of other malignant neoplasm of bronchus and lung; Z92.3 Personal history of irradiation
CPT/HCPCS: 36415; 71046; 80053; 83880; 84484; 85025; 87486; 87581; 87633; 93005; 94640; 96361; 96374; 99285; J2930; J7030

== ENCOUNTER → 2022-07-16 11:14 | Outpatient (BNVA) | payer MEDICARE, BC, SELFPAY | PROVIDERS: PCP Family Medicine; Visit Provider Internal Medicine Pulmonary Disease | DX: R06.02 Shortness of breath (principal); J43.2 Centrilobular emphysema; R91.1 Solitary pulmonary nodule; R49.0 Dysphonia; B37.0 Candidal stomatitis; Z87.891 Personal history of nicotine dependence | CPT/HCPCS: 99214 ==

== ENCOUNTER 2022-07-27 12:53 | Outpatient (CLI) | payer MEDICARE, BC, SELFPAY ==
--- NOTE | 2022-07-27 13:30 | CTR_ITS ---
PROCEDURE INFORMATION: Exam: CT Chest Without Contrast; Diagnostic Exam date and time: 07/27/2022 1:22 PM Age: 81 years old Clinical indication: Condition or disease; Lung condition and disease; Pulmonary nodule, solitary; Prior surgery; Surgery type: Heart; Patient HX: Follow up lung nodule, cough x 3 months, HX of lung cancer; Additional info: 3 month f/u lung nodule TECHNIQUE: Imaging protocol: Diagnostic computed tomography of the chest without contrast. Radiation optimization: All CT scans at this facility use at least one of these dose optimization techniques: automated exposure control; mA and/or kV adjustment per patient size (includes targeted exams where dose is matched to clinical indication); or iterative reconstruction. COMPARISON: CT chest wo con [id number] 05/18/2022 9:39 AM, CT chest dated December 26, 2021. RADIATION DOSE METRICS: Total DLP (mGy-cm): 768.21 FINDINGS: Lungs: Residual 5 x 7 mm nodule/scar in the anterior segment right upper lobe place where there was previously 12 mm neoplasm on December 26, 2021. Axial series 5, image 21, sagittal series 3, image 52. Interval increased size of 9 x 9 x 6 mm pulmonary nodule posterior segment right lower lobe which previously measured 6 x 7 mm. Possible lung cancer or pulmonary metastasis. Axial series 5, image 25, sagittal series 13, image 49. Stable scar posterior segment left upper lobe, axial series 5, image 22, sagittal series 13, image 19. Pleural spaces: Unremarkable. No pneumothorax. No pleural effusion. Heart: Unremarkable. No cardiomegaly. No pericardial effusion. Coronary arteries: Stable CABG procedure. Lymph nodes: Unremarkable. No enlarged lymph nodes. Vasculature: Unremarkable. No aortic aneurysm. Bones/joints: Unremarkable. No acute fracture. Soft tissues: Unremarkable. CT/CT chest wo con [id number] IMPRESSION: 1. Residual 5 x 7 mm nodule/scar in the anterior segment right upper lobe place where there was previously 12 mm neoplasm on December 26, 2021. Axial series 5, image 21, sagittal series 3, image 52. 2. Interval increased size of 9 x 9 x 6 mm pulmonary nodule posterior segment right lower lobe which previously measured 6 x 7 mm. Possible lung cancer or pulmonary metastasis. Axial series 5, image 25, sagittal series 13, image 49. 3. Stable scar posterior segment left upper lobe, axial series 5, image 22, sagittal series 13, image 19. 4. Follow-up according to the oncology protocol.
== END 2022-07-27 12:54 | disposition home or self-care (01) ==
LOC: RAD 12:57
PROVIDERS: PCP Family Medicine; Visit Provider Internal Medicine Pulmonary Disease
DX: R91.1 Solitary pulmonary nodule (principal); Z85.118 Personal history of other malignant neoplasm of bronchus and lung
CPT/HCPCS: 71250

== ENCOUNTER 2022-08-08 08:45 | Outpatient (CLI) | payer MEDICARE, BC, SELFPAY ==
--- NOTE | 2022-08-08 09:00 | PETR_ITS ---
PROCEDURE INFORMATION: Exam: PET/CT Skull Base to Mid-thigh Exam date and time: 08/08/2022 9:34 AM Age: 81 years old Clinical indication: Condition or disease; Follow-up oncological assessment; Patient HX: Lung cancer, increased nodule size; Additional info: Previously treated lung cancer with increased nodule size, 07/27/22 CT chest: LABS AND CLINICAL REPORTS: Glucose: 107 mg/dl Treatment strategy for malignancy (PET staging): Restaging (PS) TECHNIQUE: Imaging protocol: Following at least four-hour fasting and following the injection of F-18-FDG, low dose CT images were obtained. Then, PET images were obtained. Attenuation corrected images were constructed using the CT scan. Fused images of PET and CT were reviewed. The standardized uptake values (SUV) reported below are maximum values within a region of interest, expressed in gm/ml. Exam includes orbital meatal line to mid-thigh. Radiopharmaceutical: 13.55 mCi F-18 FDG (Fluorodeoxyglucose), IV. Time of imaging post radiopharmaceutical administration: 52.43 minutes Injection site: Not specified. COMPARISON: 1. CT chest 07/27/2022. 2. PET/CT 01/03/2022. Images are available, but the report is not. It has been requested. 3. CT chest 05/18/2022. FINDINGS: Brain: Visualized brain has normal physiologic uptake. Pharynx: Increased uptake in the tonsils is nonspecific and probably infectious/inflammatory. SUV max at the right tonsil is 5.7. SUV max at the left tonsil is 5.4. Larynx: No abnormal uptake. Lungs, pleura and trachea: In the anterior segment of the left upper lobe, an FDG avid pulmonary nodule is larger and more FDG avid. It is 2.2 cm. Its SUVmax is 4.1 (previously 2.0) (axial series 3, image 53). It is suspicious for either primary pulmonary malignancy or metastasis. In the anterior segment of the right upper lobe, a pulmonary nodule is smaller and no longer FDG avid. Its SUVmax is 1.6 (previously 5.3) (axial series 3, image 50). It is consistent with residual scar. In the posterior segment of the right upper lobe, a pulmonary nodule is unchanged in size and still not FDG avid. It is 9 x 6 mm. Its SUVmax is 1.1 (previously 1.2) (axial series 3, image 51). It is consistent with scar. Heart: Normal physiologic uptake. Coronary arteries: Coronary artery bypass graft surgery. Coronary arteries are heavily calcified. Mediastinal space: No abnormal uptake. Diaphragm: There is a small hiatal hernia. Liver: No abnormal uptake. Gallbladder and bile ducts: No abnormal uptake. Pancreas: No abnormal uptake. Spleen: No abnormal uptake. Adrenal glands: No abnormal uptake. Kidneys and ureters: There is a 2.5 cm cyst at the anterolateral lower left kidney. There is no hydronephrosis, stone or renal mass. Stomach and bowel: Colostomy in the left mid abdomen at the proximal descending colon is uncomplicated. No abnormal uptake. Urinary bladder: Urinary bladder is normal without wall thickening, mass or stone. Post prostatectomy and cystectomy with neobladder. Vasculature: There is severe calcific atherosclerosis of the abdominal aorta and iliac arteries. There is no aneurysm. There is moderate calcific atherosclerosis of the abdominal aorta and iliac arteries. There is no aneurysm. Lymph nodes: No abnormal uptake. No lymphadenopathy in the head, neck, chest, abdomen, pelvis or extremities. Bones/joints: Sternotomy closure with wire sutures. Soft tissues: Mild increased uptake at the right anterior chest wall superficial to the right upper lobe pulmonary nodule (which was hypermetabolic on the prior PET/CT) is likely due to radiation therapy. Its SUV max is 3.5 (series 3, image 51). PET/PET skulltothigh INITIAL [id number] IMPRESSION: 1. In the anterior segment of the left upper lobe, an FDG avid pulmonary nodule is larger and more FDG avid. It is 2.2 cm. Its SUVmax is 4.1 (previously 2.0) (axial series 3, image 53). It is suspicious for either primary pulmonary malignancy or metastasis. 2. In the anterior segment of the right upper lobe, a pulmonary nodule is smaller and no longer FDG avid. Its SUVmax is 1.6 (previously 5.3) (axial series 3, image 50). It is consistent with residual scar. 3. In the posterior segment of the right upper lobe, a pulmonary nodule is unchanged in size and still not FDG avid. It is 9 x 6 mm. Its SUVmax is 1.1 (previously 1.2) (axial series 3, image 51). It is consistent with residual scar. 4. Additional stable nonacute and postsurgical findings are described above.
== END 2022-08-08 08:46 | disposition home or self-care (01) ==
LOC: RAD 08-10 06:20
PROVIDERS: PCP Family Medicine; Visit Provider Internal Medicine Pulmonary Disease
DX: C34.90 Malignant neoplasm of unspecified part of unspecified bronchus or lung (principal); R91.1 Solitary pulmonary nodule
CPT/HCPCS: 78815; A9552

== ENCOUNTER 2022-08-11 05:40 | Day surgery (SDC) | payer MEDICARE, BC, SELFPAY ==
[2022-08-07 08:44] VITALS: BMI 31.1
[2022-08-11] VITALS (8 sets, daily range): BP systolic 132–161; BP diastolic 53–71; PULSE 67–79; RESP 16–20; TEMP 36.1–36.2; O2SAT 90–98
[2022-08-11] MEDS: sodium chloride 0.9% 1,000 ML 30 ML IV (06:38)
--- NOTE | 2022-08-11 06:59 | W.PM.OPSUD ---
Surgery/Procedure H&P Update DATE OF PROCEDURE: August 11, 2022 DATE H&P PERFORMED: 07/16/22 CHANGES TO PREVIOUS DOCUMENTATION: Postradiation January [address] chest on 07/27/2022 which showed 1. residual 5 x 7 mm nodule/scar in the anterior segment RULplace where there was previously 12 mm neoplasm on December 26, 2021. 2. Interval increased size of 9 x 9 x 6 mm pulmonary nodule posterior segment RLL which previously measured 6 x 7 mm. 3. Stable scar posterior segment left upper lobe, Follow-up PET/CT on 08/08/2021: 1. Posterior segment RUL pulmonary nodule unchanged in size if not FDG avid consistent with residual scar 2. Anterior segment of RLL pulmonary nodule is smaller and no longer FDG active 3. Anterior segment of YOGESH FDG avid pulmonary nodule larger 2.2 cm and SUV max 4.1 PREOP DIAGNOSIS: Lung nodule PRIMARY INDICATION FOR PROCEDURE: Today scheduled for Ion robotic assisted bronchoscopic biopsy of PET active left upper lobe nodule. PLANNED PROCEDURE: Operation Date: 08/11/22 07:00 Proposed Procedures p ION robotic bronch with EBUS [id number], [id number], [id number], [id number], [id number], 56919, 24897, 05806, 66138, 56157,C34.90,R91.8(Not Applicable) - Mahdu Camarena MD s Ebus(Not Applicable) - Madhu Camarena MD
--- NOTE | 2022-08-11 07:14 | SC_ITS ---
WS: [id number] C-ARM RADIOGRAPHS CHEST; 3 IMAGES HISTORY: ion COMPARISON: None available. Intraoperative imaging during bronchoscopy procedure. Tip of the scope projects over the mid LEFT jian g. SC/C-arm FL for Bronchoscopy IMPRESSION: Intraoperative imaging during bronchoscopy procedure performed by Dr. Harrell
--- NOTE | 2022-08-11 07:45 | P.ANESASSM_ITS ---
Pre-Anesthetic Assessment Height/Weight: Height 1.68 m Weight 87.543 kg Temp Pulse Resp BP Pulse Ox O2 Del Method 97 F L 75 20 H 161/71 94 08/11/22 06:12 08/11/22 06:12 08/11/22 06:12 08/11/22 06:12 08/11/22 06:12 08/11/22 06:12 Preop Diagnosis: Lung nodule Operation Date: 08/11/22 07:00 Proposed Procedures p ION robotic bronch with EBUS 22766, 39354, 80176, 51203, 60891, 14415, 29864, 74063, 06388, 56303,C34.90,R91.8(Not Applicable) - Madhu Camarena MD s Ebus(Not Applicable) - Madhu MorganrMD Familial anesthetic complications: none Was Beta Jorje taken within 24 hours: Yes Was Clonidine taken within 24 hours: N/A Last intake: Intake Last Liquid Date 08/10/22 Last Liquid Time 18:00 Last Solid Date 08/10/22 Last Solid Time 22:00 Social No alcohol and No tobacco (h/o smoking) Exam alert, oriented x 3 and regular rate & rhythm rhonchi Airway Submandibular: within normal limits Cervical ROM: within normal limits Mallampati: Class II Dentition: false (upper) Comments: Comments: Hoarseness Pulmonary Chronic Obstructive Pulmonary Disease CV/HEM Coronary Artery Disease (CABG) and Hypertension Metabolic Diabetes Mellitus, Hyperlipidemia and Morbid Obesity Anesthetic Plan ASA status: 3 Anesthesia: General Medications/Allergies Home Medications Medication Instructions Recorded Confirmed Last Taken Type albuterol sulfate 90 mcg/actuation 1 inh inhalation Q4H PRN Wheezing 08/07/19 08/07/22 08/10/22 History aerosol inhaler desloratadine 5 mg tablet 5 mg PO DAILY 08/07/19 08/07/22 08/10/22 History (Clarinex) multivitamin 1 tab PO DAILY 08/07/19 08/07/22 08/10/22 History ascorbate calcium (vitamin C) 500 500 mg PO BID 05/04/20 08/07/22 08/10/22 History mg tablet QUERCETIN/BROMELIAN 01/01/21 07/16/22 10/06/21 History aspirin 81 mg tablet,delayed 81 mg PO BEDTIME 03/13/21 08/11/22 08/09/22 History release (Adult Low Dose Aspirin) ketoconazole 2 % topical cream 1 applic topical BID #30 grams 12/08/21 08/07/22 08/09/22 Rx gabapentin 400 mg capsule 400 mg PO BID 05/28/22 08/07/22 08/10/22 History budesonide 160 mcg-glycopyr 9 2 inh inhalation BID 07/16/22 08/07/22 08/10/22 History mcg-formot 4.8 mcg/actuation HFA inhaler (Breztri Aerosphere) ipratropium 0.5 mg-albuterol 3 mg 3 ml inhalation Q6H PRN Shortness 07/16/22 08/07/22 08/09/22 History (2.5 mg base)/3 mL nebulization Of Breath soln nystatin 100,000 unit/mL oral 100,000 unit buccal DAILY #200 mL 07/16/22 08/07/22 08/10/22 Rx suspension isosorbide mononitrate 30 mg 15 mg PO BID #100 tabs 07/21/22 08/07/22 08/10/22 Rx tablet,extended release 24 hr nitroglycerin 0.4 mg sublingual 0.4 mg sublingual DIRECTED PRN 07/21/22 08/07/22 Unknown Rx tablet (Nitrostat) chest pain #50 tabs carvedilol 12.5 mg tablet 12.5 mg PO BID #180 tabs 07/30/22 08/07/22 08/08/22 Rx atorvastatin 10 mg tablet (Lipitor) 10 mg PO BEDTIME 08/07/22 08/11/22 08/09/22 History methenamine hippurate 1 gram tablet 1 g PO BID 08/07/22 08/07/22 08/10/22 History ramipril 2.5 mg capsule 2.5 mg PO BEDTIME 08/11/22 08/11/22 08/09/22 History Allergies Allergy/AdvReac Type Severity Reaction Status Date / Time No Known Allergies Allergy Verified 07/16/22 11:33 Current Medications Generic Name Dose Route Start Last Admin Trade Name Freq PRN Reason Stop Dose Admin Sodium Chloride 1,000 mls @ 30 mls/hr 08/11/22 06:00 08/11/22 06:38 Sodium Chloride 0.9% IV 08/12/22 05:59 30 mls/hr .Q24H KAMI Administration PFSH Anesthesia Medical History Acquired hydronephrosis CAD (coronary artery disease) CKD (chronic kidney disease) COPD (chronic obstructive pulmonary disease) Coronary artery disease involving autologous artery coronary bypass graft Patient had a four-vessel coronary bypass surgery in 2004 in [facility]. Dyslipidemia Dyspnea on exertion Esophageal cancer H/O coronary angiogram Herpes ocular History of prostate cancer Myocardial infarct, old Prostate cancer Recurrent UTI (urinary tract infection) Surgical History History of cervical spinal surgery History of surgery on arm History of urinary diversion procedure History of urostomy S/P colostomy S/P coronary artery bypass graft x 1 S/P coronary artery bypass graft x 1 S/P gastric surgery S/P wrist surgery Family History Father Heart disease CAD (coronary artery disease), Onset Age: 59 Sister Anesthesia complication CAD (coronary artery disease), Onset Age: 50 Diabetes Brother CAD (coronary artery disease), Onset Age: 70 Cancer Lung disease Denies family history of Clotting disorder Dementia Chronic kidney disease (CKD) Suicide Bleeding disorder Stroke Social History Smoking and tobacco status: former smoker Quit status (tobacco): has quit using tobacco Year quit tobacco: 2011 Former quit date comment: 2.5ppd x 55 years Alcohol intake: never Adopted: No Caregiver/support person: No Lives independently: No Household members: spouse Marital status: Current occupational status: retired History of recent travel: No Current gender identity: Male Data Anesthesia Cardiac Studies: Echocardiogram Ultrasound 08/30/20 Sestamibi Stress Test (Cardiology) 08/30
--- NOTE | 2022-08-11 08:56 | P.OP_ITS ---
Operative Report Date of procedure: August 11, 2022 Pre-op diagnosis: Preop Diagnosis Lung nodule Post-op diagnosis: PET active left upper lobe nodule suspicious for malignancy Procedure done: 98861 Dx Bronchoscope w/Washings or airway inspection 85201 Bx Bronchoscope w/Brushings or protected brushings 96723 Dx Bronchoscope w/BAL 51577 Bronch with computer image guided Navigational Bronchoscopy 18888 Bronchoscopy w/Transbronchial lung biopsy(s), single lobe 15761 Bronchoscopy w/Transbronchial needle aspiration biopsy(s), tracheal, main stem, and/or lobar bronchus 10015 Bronchoscopy w/ therapeutic aspiration of the tracheobronchial tree (allyson arance of airway secretions, removal of mucus plugs) 21423 EBUS Diag or Interven Peripheral lesion (radial EBUS) Surgeon: Madhu Camarena MD, [facility] Brief History: Mr. Xavier Borges is a 81-year-old male with past medical history of clinical stage Ia lung cancer-underwent SBRT at [facility] for 3 days in January 2022. His surveillance CT scanning showed concerning lesion on left upper lobe. Subsequent PET CT scan on 08/08/2021 showed anterior segment of left upper lobe FDG avid pulmonary nodule larger in size 2.2 cm with SUV max 4.1. Today I have scheduled patient for bronchoscopic evaluation to obtain biopsies of left upper lobe FDG active lesion Procedure: 53757 Dx Bronchoscope w/Washings or airway inspection 81490 Bx Bronchoscope w/Brushings or protected brushings 35217 Dx Bronchoscope w/BAL 10930 Bronch with computer image guided Navigational Bronchoscopy 91654 Bronchoscopy w/Transbronchial lung biopsy(s), single lobe 41487 Bronchoscopy w/Transbronchial needle aspiration biopsy(s), tracheal, main stem, and/or lobar bronchus 47767 Bronchoscopy w/ therapeutic aspiration of the tracheobronchial tree (clearance of airway secretions, removal of mucus plugs) 25321 EBUS Diag or Interven Peripheral lesion (radial EBUS) Indication: Postradiation for right upper lobe PET active lesion January 2022- Follow-up PET/CT on 08/08/2021 showed:? Anterior segment of left upper lobe FDG avid pulmonary nodule larger 2.2 cm and SUV max 4.1 Today scheduled for Ion robotic assisted bronchoscopic biopsy of PET active left upper lobe nodule. Description of the procedure: The procedure was explained to the patient and the consent was obtained. The patient was brought to the OR. Anesthesia: The patient underwent endotracheal intubation for general anesthesia. Local anesthesia: The yg in the right and left mainstem bronchi were ane sthetized with 1% lidocaine, 3 mL. Following induction of general anesthesia, the flexible bronchoscope used for initial inspection (71656) and airway clearance (48073). The scope was advanced through the ET tube. The lower trachea mucosa appeared normal, no endotracheal lesion was seen. The yg was sharp. The yg, the right and left mainstem bronchi are anesthetized with 1% lidocaine. In a systematic manner bilateral bronchial tree was then examined. The bronchoscope was then introduced into the right mainstem bronchus. The right upper lobe, right middle lobe and right lower lobe bronchi were examined up to the third subsegmental level and no abnormalities were identified. There were significant mucus secretions which were suctioned right away. The bronchoscope was advanced into the left mainstem bronchus. The mucosa appeared normal with no endobronchial lesions. The left upper lobe, lingula and left lower lobe bronchi were examined up to the third subsegmental level and no abnormalities were identified. Mucosa appeared normal with no endobronchial lesion, active bleeding or mucous plug. There were significant mucus secretions in lower lobe-which were suctioned right away. After initial inspection as well as airway clearance with flexible bronchoscope(74741), ION robotic assisted navigational bronchoscope (61617) was introduced-and left upper lobe lesion was accessed. After confirming the location with radial EBUS (91235), under the fluoroscopy guidance -we were able to obtain biopsies using Cytobrush, fine-needle, forceps. 1 pass with each of these instruments were used for touch prep and sent for rapid onsite evaluation- pathology reported seeing atypical clusters. Additional 4 passes were made with fine-needle and 4 passes were made with forceps and all the samples were placed in formalin for histopathology examination. Bronchoalveolar lavage was performed from the right lower lobe, 10 mL of saline was instilled, fluid return was 6 mL. The fluid was mixed with blood and specks of tissue. There was some evidence of grade 2 bleeding-cold saline was instilled and after making sure there is no active bleeding, ION robotic assisted navigational bronchoscope was retracted. Endobronchial ultrasound (EBUS )was introduced and did surveillance of mediastinal and hilar lymph nodes. There were no suspicious lymph nodes to biopsy. Hence EBUS retracted and and procedure terminated. Samples: A.Left upper lobe lesion 1. 1 passes with Cytobrush (68984 ) performed-1 pass used for touch prep - reported negative for malignancy;and rest of the tissue was placed in formalin and sent for histopathology. 2. Total of 5 passes were made using needle aspiration(94512); 2 pass used for touch prep - reported atypical clusters; remaining 3 passes were placed in formalin for histopathology 3.Targeting the same area 5 passes were made using forceps (00258); 1 pass used for touch prep - reported negative for malignancy; remaining for passes were placed in formalin for histopathology 4. BAL from left upper lobe sent for cytology Complications: None.The patient was extubated and brought to the PACU in stable condition. Postprocedure chest x-ray: No evidence of pneumothorax Disposition: Patient can be discharged home in stable condition. Pt, and his are aware that I am going to call them to update final biopsy results once available.
--- NOTE | 2022-08-11 09:18 | XR_ITS ---
WS: [id number] Portable AP upright chest, 08/11/2022 Clinical Data: Post Bronch/EBUS Comparison: Two-view chest, 06/17/2022 Findings: No nodules, masses or effusions are seen. The heart is normal. The pulmonary vascularity is not increased. No pneumonia or pneumothorax is seen. There is minimal opacity in the midportion of t he right lung which has diminished and probably represents resolving atelectasis or residual fibrosis . Midline sternotomy sutures are present. The aortic arch and descending thoracic aorta show mild tor tuosity and calcification. There are monitor leads on the chest wall. There are surgical clips in the central portion of the upper abdomen. XR/XR chest 1V portable [id number] Impression: Atherosclerosis.
[2022-08-11 10:20] LABS: Cyto Order Verification Order Verified
--- NOTE | 2022-08-11 14:13 | ANE.PACU2 ---
Inpatient post-anesthesia follow up: Airway intact: Yes Vital signs: Temperature 97 F Pulse Rate 67 Respiratory Rate 18 Blood Pressure 149/67 Pulse Oximetry 92 Oxygen Delivery Me thod Room Air Oxygen Flow Rate 2 Fraction of Inspir ed Oxygen Hydration adequate: Yes Nausea and vomiting: No Pain level: 2 Mental status: Baseline
[2022-08-12 09:07] LABS: Apprearance, Bronch Wash Bloody (CLEAR); Color, Bronc Wash Red
[2022-08-12 09:15] LABS: Total Cells Counted Bronch 15
[2022-08-12 09:25] LABS: Bronch Source Left Upper Lobe
[2022-08-12 09:34] LABS: Cyto Order Verification No Order
== END 2022-08-11 10:09 | disposition home or self-care (01) ==
PROVIDERS: PCP Family Medicine; Visit Provider Internal Medicine Pulmonary Disease
PROC: 0BJ08ZZ Inspection of Tracheobronchial Tree, Via Natural or Artificial Opening Endoscopic (ICD-10-PCS; CPT 31622; principal; 2022-08-11 07:00)
PROC: BB4BZZZ Ultrasonography of Pleura (ICD-10-PCS; 2022-08-11 07:00)
DX: R91.8 Other nonspecific abnormal finding of lung field (principal); J44.9 Chronic obstructive pulmonary disease, unspecified; I25.10 Atherosclerotic heart disease of native coronary artery without angina pectoris; Z95.1 Presence of aortocoronary bypass graft; I10 Essential (primary) hypertension; E11.9 Type 2 diabetes mellitus without complications; E78.5 Hyperlipidemia, unspecified; E66.01 Morbid (severe) obesity due to excess calories; Z68.31 Body mass index [BMI] 31.0-31.9, adult; Z85.46 Personal history of malignant neoplasm of prostate; Z85.01 Personal history of malignant neoplasm of esophagus; I25.2 Old myocardial infarction; Z87.891 Personal history of nicotine dependence
CPT/HCPCS: 31623; 31624; 31627; 31628; 31629; 31645; 31654; 71045; 76000; 80503; 87070; 87205; 88108; 88305; 88342; 89050; J1100; J2370; J2405; J2704; J2710; J3010; J3490; J7030

== ENCOUNTER 2022-11-10 09:13 | Outpatient (CLI) | payer MEDICARE, BC, SELFPAY ==
--- NOTE | 2022-11-10 09:00 | CT_ITS ---
WS: [id number] CT chest wo con 19662 HISTORY: 3 month f/u PET positive nodule TECHNIQUE: Axial imaging performed through the thorax. Coronal and sagittal reformats are submitted. All CT scans at [facility] use at least one of these dose optimization techniques: automated exposure control; mA and/or kV adjustment per patient size (includes targeted exams where dose is mat ched to clinical indication); or iterative reconstruction. CONTRAST: None DLP: 321.66 mGy.cm COMPARISON: 07/27/2022 and PET/CT 08/08/2022 Lungs and central airway: Chronic emphysema. Multiple bilateral nodules and scattered opacifications. PET/CT nodule in the central LEFT upper lobe has actually increased in size now measuring 2.0 x 1.2 cm. Additional 1.0 cm nodule in the LEFT upper lobe very slightly increased in size. Mild thickening along the LEFT major fissure. No LEFT lower lobe nodules. Subsegmental atelectasis in the RIGHT upper lobe. 0.8 cm solid nodule RIGHT upper lobe appears more solid on the prior study. No increase in siz e. Pleura: Normal. No pleural effusion. Heart and pericardium: Normal size heart with no pericardial effusion. Mediastinum and flaquita: No mediastinum or hilar adenopathy. Vessels: Moderate atherosclerosis aorta. Normal size pulmonary artery. Heavy calcification in the eleni macarena coronary arteries. Chest wall and lower neck: Prior CABG. Upper abdomen: Bilateral stranding around the superior pole of each kidney. Osseous structures: No osteoblastic or osteolytic bone disease. CT/CT chest wo con 92549 IMPRESSION: 1. PET/CT positive LEFT upper lobe pulmonary nodule has increased in size sinc e the prior study of 07/27/2022. Nodule measures 2.0 x 1.2 cm as compared to 1.8 x 0.8 cm. 2. Additional scattered opacifications. There is an additional nodule measurin g 0.8 cm in the RIGHT upper lobe. Although not increased in size does appear mo re consolidated. Very minimal increase in size of an additional 1.0 cm nodule L EFT upper lobe. 3. No adenopathy. 4. Prior CABG.
== END 2022-11-10 09:14 | disposition home or self-care (01) ==
LOC: RAD 09:17
PROVIDERS: PCP Family Medicine; Visit Provider Internal Medicine Pulmonary Disease
DX: R91.8 Other nonspecific abnormal finding of lung field (principal); R91.1 Solitary pulmonary nodule; Z95.1 Presence of aortocoronary bypass graft
CPT/HCPCS: 71250

== ENCOUNTER → 2022-11-30 11:13 | Outpatient (BNVA) | payer MEDICARE, BC, SELFPAY | PROVIDERS: PCP Family Medicine; Visit Provider Internal Medicine Pulmonary Disease | DX: J43.2 Centrilobular emphysema (principal); R91.1 Solitary pulmonary nodule; Z87.891 Personal history of nicotine dependence; I25.10 Atherosclerotic heart disease of native coronary artery without angina pectoris; Z95.1 Presence of aortocoronary bypass graft | CPT/HCPCS: 99214 ==

== ENCOUNTER 2022-12-31 09:15 | Outpatient (CLI) | payer MEDICARE, BC, SELFPAY ==
--- NOTE | 2022-12-31 09:25 | XR_ITS ---
WS: [id number] KUB, AP view, 12/31/2022 Clinical Data: urinary diversion Comparison: KUB, 12/26/2021 Findings: No abnormal intraabdominal masses or calcifications are seen. There is no dilatated small bowel or ev idence of obstruction. There is a catheter which overlies the bladder. There are clips in the mid pelvis from surgery. There are upper abdominal clips in the region of the gastroesophageal junction. There are radiopaque opaqu e seeds in the region of the prostate. XR/XR KUB 23267 Impression: Stable postoperative findings.
[2022-12-31 09:54] LABS: Basophils % 0.4 %; Eosinophils # 0.1 10^3/uL (0.0-0.8); Eosinophils % 2.5 %; Hematocrit 41.7 % (42.0-52.0); Hemoglobin 13.4 g/dL (11.7-16.6); Lymphocytes # 1.3 10^3/uL (0.8-4.8); Lymphocytes % 27.8 %; Mean Corpuscular HGB Conc 32.1 g/dL (30.0-36.0); Mean Corpuscular Hemoglobin 31.5 pg (28.0-34.0); Mean Corpuscular Volume 98.1 fl (80-94); Mean Platelet Volume 8.6 fL (7.4-10.4); Monocytes # 0.4 10^3/uL (0.2-0.9); Monocytes % 7.4 %; Neutrophils % 61.7 %; Nucleated Red Blood Cells % 0 %; Platelet Count 168 10^3/cmm (130-400); Red Blood Count 4.25 10^6/uL (4.1-5.3); Red Cell Distribution Width 14.4 % (12.1-15.1); White Blood Count 4.7 10^3/uL (4.0-10.0)
[2022-12-31 10:12] LABS: Alanine Aminotransferase 16 U/L (0-41); Albumin Level 3.9 g/dL (3.5-5.2); Alkaline Phosphatase 89 U/L (40-130); Anion Gap 14.4 (5-19); Aspartate Amino Transferase 18 U/L (0-40); Blood Urea Nitrogen 16 mg/dL (8-23); Calcium 9.1 mg/dL (8.5-10.5); Carbon Dioxide 24 mmol/L (22-29); Chloride 104 mmol/L (98-107); Glucose 109 mg/dL (65-115); Osmolality Calculated 288 mOsm/kg (285-295); Potassium 4.4 mmol/L (3.5-5.1); Sodium 138 mmol/L (136-145); Total Bilirubin 0.6 mg/dL (0.15-1.2); Total Protein 6.9 g/dL (6.6-8.7)
== END 2022-12-31 09:16 | disposition home or self-care (01) ==
LOC: RAD 09:17
PROVIDERS: PCP Family Medicine; Visit Provider Urology
DX: N18.9 Chronic kidney disease, unspecified (principal); Z85.46 Personal history of malignant neoplasm of prostate; C34.90 Malignant neoplasm of unspecified part of unspecified bronchus or lung; N41.1 Chronic prostatitis; N39.0 Urinary tract infection, site not specified; Z90.6 Acquired absence of other parts of urinary tract; Z87.440 Personal history of urinary (tract) infections; Z98.890 Other specified postprocedural states; Z87.891 Personal history of nicotine dependence; Z79.899 Other long term (current) drug therapy; Z79.2 Long term (current) use of antibiotics
CPT/HCPCS: 36415; 74018; 80053; 81003; 85025; 99213

== ENCOUNTER → 2023-01-27 12:47 | Outpatient (BNVA) | payer MEDICARE, BC, SELFPAY | PROVIDERS: PCP Family Medicine; Visit Provider Nurse Practitioner Family | DX: I25.810 Atherosclerosis of coronary artery bypass graft(s) without angina pectoris (principal); I25.2 Old myocardial infarction; Z87.891 Personal history of nicotine dependence; I12.9 Hypertensive chronic kidney disease with stage 1 through stage 4 chronic kidney disease, or unspecified chronic kidney disease; N18.9 Chronic kidney disease, unspecified | CPT/HCPCS: 99214 ==

== ENCOUNTER 2023-02-20 05:42 | Outpatient (CLI) | payer MEDICARE, BC, SELFPAY ==
--- NOTE | 2023-02-20 08:50 | PETR_ITS ---
PROCEDURE INFORMATION: Exam: PET/CT Skull Base to Mid-thigh Exam date and time: 02/20/2023 9:31 AM Age: 82 years old Clinical indication: Abnormal findings; Lung nodule; Additional info: Lung nodule f/u LABS AND CLINICAL REPORTS: Glucose: 116 mg/dl Treatment strategy for malignancy (PET staging): Initial Staging (PI) TECHNIQUE: Imaging protocol: Following at least four-hour fasting and following the injection of radiopharmaceutical, low dose CT images were obtained. Then, PET images were obtained. Attenuation corrected images were constructed using the CT scan. Fused images of PET and CT were reviewed. The standardized uptake values (SUV) reported below are maximum values within a region of interest, expressed in gm/ml. Exam includes orbital meatal line to mid-thigh. Radiopharmaceutical: 11.74 mCi F-18 FDG (Fluorodeoxyglucose), IV. Time of imaging post radiopharmaceutical administration: 1 hour Injection site: Right antecubital COMPARISON: Chest CT 11/10/2022 PT PET skulltothi INITIAL [id number] 08/08/2022 9:34 AM FINDINGS: Brain: Visualized brain has normal physiologic uptake. Pharynx: No abnormal uptake. Larynx: No abnormal uptake. Lungs, pleura and trachea: A solid irregularly marginated left upper lobe nodule measuring approximately 2.5 x 1.4 cm on series 3, image 55 is radiotracer avid, SUV max 8.5 (previously measuring 2.2 cm in greatest dimension with an SUV max 4.1). Mild uptake is noted within streaky density likely representing atelectasis or scarring in the region of the medial lingula on series 3, image 66, SUV max 2.9. Similar streaky density in the anterior right upper lobe without elevated uptake or definite nodularity. In the anterior right upper lobe, a similar solid-appearing approximately 4 mm nodule or focus of scarring on series 3, image 63 demonstrates an SUV max 1.1 (previously 1.4). A similar in size solid nodule in the posterior right upper lobe measures 9 mm on series 3, image 52, SUV max 1.7 (previously 1.1). Heart: Normal physiologic uptake. Mediastinal space: No abnormal uptake. Liver: No abnormal uptake. Gallbladder and bile ducts: No abnormal uptake. Pancreas: No abnormal uptake. Spleen: No abnormal uptake. Adrenal glands: No abnormal uptake. Kidneys and ureters: Normal physiologic uptake. A non radiotracer avid left renal inferior pole hypodense lesion measuring 2.4 cm in diameter demonstrates a density of 6 HU compatible with a benign cyst. Stomach and bowel: Surgical clips in the region of the gastroesophageal junction are present. There are postoperative changes in the region of the rectum and anus. Elevated uptake in the region of the distal rectum is noted which appears to be separate from uptake within the lumen of the urinary bladder on series 3, image 149, SUV max 6.8 (previously 5.3). A left abdominal colostomy site is present. Urinary bladder: The urinary bladder is decompressed with a suprapubic catheter. Reproductive: Radiotherapy seeds in the prostate gland are noted. No abnormal uptake. Vasculature: No abnormal uptake. Diffuse atherosclerotic changes are present. Lymph nodes: No abnormal uptake. No lymphadenopathy in the head, neck, chest, abdomen, pelvis, and extremities. Bones/joints: No abnormal uptake in the visualized axial and appendicular skeleton. Sternotomy wires are present.There is mild diffuse vertebral body spondylosis. Soft tissues: There is benign-appearing asymmetric uptake in the right supraspinatus muscle, SUV max 3.8, likely physiologic or inflammatory. Interval decrease in the anterior right chest wall musculature likely representing mild residual inflammatory changes, SUV max 2.8 (previously 3.5). METRICS: Mediastinal blood pool: SUV max 3.3 PET/PET [facility] INITIAL [id number] IMPRESSION: 1. Interval increase in size of a left upper lobe nodule compared with the prior PET-CT with increased uptake (SUV max 8.5, previously 4.1) compatible with malignancy. 2. Similar size of non radiotracer avid smaller additional pulmonary nodules as detailed above. Assessment of small nodules can be limited by PET-CT. 3. Uptake in the soft tissues in the region of surgery involving the area of the distal rectum is slightly increased (SUV max 6.8, previously 5.3). This region appears to be separate from physiologic uptake within what appears to be the decompressed urinary bladder. Correlation with surgical history is recommended. This may represent post treatment inflammatory changes, although neoplastic involvement cannot be excluded. 4. Additional nonurgent findings as detailed above.
== END 2023-02-20 05:43 | disposition home or self-care (01) ==
LOC: RAD 02-22 05:42
PROVIDERS: PCP Family Medicine; Visit Provider Internal Medicine Pulmonary Disease
DX: R91.1 Solitary pulmonary nodule (principal)
CPT/HCPCS: 78815; A9552

== ENCOUNTER → 2023-02-26 08:55 | Outpatient (BNVA) | payer MEDICARE, BC, SELFPAY | PROVIDERS: PCP Family Medicine; Visit Provider Internal Medicine Pulmonary Disease | DX: J43.2 Centrilobular emphysema; R05.8 Other specified cough; Z85.46 Personal history of malignant neoplasm of prostate; Z85.819 Personal history of malignant neoplasm of unspecified site of lip, oral cavity, and pharynx; R91.8 Other nonspecific abnormal finding of lung field; Z87.891 Personal history of nicotine dependence | CPT/HCPCS: 99214 ==

== ENCOUNTER 2023-03-03 10:59 | Oncology outpatient (recurring) (ONCR) | payer MEDICARE, BC, SELFPAY ==
--- NOTE | 2023-03-03 12:47 | N.ONRAD NP_ITS ---
Radiation Oncology New Patient Visit Patient: Xavier Borges MR#: [id number] : 1940 Age: 82 Sex: Male Dictated by: Jeovany Khan Date of Service: 03/03/2023 Referring Physician(s) : MD Rohit Sandoval MD. 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 Chief Complaint / History of Present Illness: The patient is an 82-year-old male with history of clinical stage Ia lung carcinoma of the right upper lung status post capital SBRT x 3 days in January 2022 delivered at [facility]. He has been followed by serial scans under the care of of Antonio Bernal MD and the most recent PET/CT 02/20/2023 showed increased activity in the left upper lung nodule from 4.1 in August 14-8.5. The left upper lung lesion also increased in size from 1.8 x 0.[address] scan 10/10/22 to 2 x 1.2 cm. Additional findings include an additional 1 cm left lung nodule. Patient has severe COPD with pulmonary function test revealing prebronchodilator FVC 2.36 L (69% predicted), prebronchodilator FEV1 1.63 L (63% predicted) and DLCO 13.31 mL/min/mmHg. Left upper lung biopsy performed by Dr. Madhu Bernal August 11, 2022 was negative. Patient is present today with his . He denies shortness of breath or cough. He remains physically active and enjoys gardening. He has 2 dogs that he walks daily. Current Medications: Adult Aspirin Regimen, albPatient is present today with his .terol Sulfate, atorvastatin Calcium, azithromycin, carvedilol, clarinex, daily Vitamin, gabapentin, isosorbide Mononitrate ER, methenamine Hippurate, nitroglycerin, predniSONE, ramipril, vitamin C. 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 Surgical History: History of cervical spinal surgery, history of surgery on arm, history of urinary diversion procedure, history of urostomy, status post colostomy, status post coronary artery brought bypass graft x 1, status post coronary artery bypass graft x 1, status post gastric surgery, status post wrist surgery. Family History: Father of heart disease, coronary artery disease onset age 59 Sister anesthesia complication, coronary artery disease onset age 50, diabetes. Brother coronary artery disease onset age 70, cancer, lung disease. Social History: Patient is a former smoker. He quit using tobacco 2011 after smoking 2 packs/day for 55 years. He is a nondrinker. He denies substance abuse. Patient is to his current spouse for 18 years. He is retired. Current Complaints / Review of Systems: . Vital Signs: Performed on 03/03/2023 11:47 AM BMI - 30.473 kg/m2 (high), Height - 66 in, Weight - 188.8 lbs, Temperature - 96.6 f, Pulse - 66 /min, Respiration - 16 /min, O2 Sat - 96 %, Pain - 0, Fatigue - 0 and BP - 146/ 75 mm(hg)(high/). Physical Exam: Alert and oriented male appearing his stated age. PERRL, EOMI. Cranial nerves II through XII grossly intact. Tongue and uvula midline and mobile. Speech intact. No cervical, supraclavicular or axillar adenopathy is noted. Lungs clear to auscultation bilaterally. Cardiovascular exam reveals regular rhythm. Abdomen soft nontender. Bowel sounds present and normal active. There is a well-healed anterior thoracic and abdominal scar. Genitourinary deferred, rectal deferred. Motor symmetrical to the upper and lower extremities. Patient ambulatory without assistance. Performance Status: 90% Pathology: Left upper lung biopsy August 11, 2022 negative Lab: Imaging: See HPI Impression: Xavier Borges is an 82-year-old male with history of stage Ia lung carcinoma of the right upper lung treated with SBRT January 2022. The right upper lung lesion has remained stable on PET/CT however the left upper lung lesion has increased in size and activity on most recent PET/CT 02/20/2023. Attempted left upper lung biopsies 08/11/2022 and 10/12/2022 were negative. Patient is aware of the risk of bleeding and or pneumothorax with additional attempted biopsies with his severe COPD. Plan: In discussion with the patient and his I have recommended that they consider evaluation and treatment of the left upper lung lobe lesion at [facility] where he has previously received the SBRT. Patient indicates his understanding and willingness to proceed with referral and treatment. Signed by: 03/03/2023 12:45:30 PM <<Signature on File>> Time spent with patient: CPT Code: CPT Code:
== END 2023-03-25 23:59 | disposition home or self-care (01) ==
LOC: ONCMED 11:00
PROVIDERS: PCP Family Medicine; Visit Provider Radiology Radiation Oncology
DX: Z08 Encounter for follow-up examination after completed treatment for malignant neoplasm (principal); Z85.118 Personal history of other malignant neoplasm of bronchus and lung; J44.1 Chronic obstructive pulmonary disease with (acute) exacerbation; F17.210 Nicotine dependence, cigarettes, uncomplicated; Z92.3 Personal history of irradiation
CPT/HCPCS: 99213

== ENCOUNTER 2023-07-07 09:30 | Outpatient (CLI) | payer MEDICARE, BC, SELFPAY ==
--- NOTE | 2023-07-07 10:00 | CT_ITS ---
WS: [id number] CT scan of the chest without IV contrast, additional two-dimensional coronal and sagittal reconstruct ion was performed. Clinical Data: 3 month f/u Comparison: None. DLP: 473.[address] scans at [facility] use at least one of these dose optimization techniques: automated e xposure control; mA and/or kV adjustment per patient size (includes targeted exams where dose is matc hed to clinical indication); or iterative reconstruction. Findings: The upper lobes show peripheral opacification probably from atelectasis and scarring. There are 3 nod ules, one in the left upper lobe measuring 1.2 x 2.2 cm unchanged, a second in the left upper lobe me asuring 1.0 cm unchanged and the third in the right upper lobe measuring 1.0 cm unchanged. The heart is normal with no pericardial effusion. There is extensive coronary artery calcification. There are c alcifications in the right and left trachea. The pulmonary arterial system and thoracic aorta demonst rate no abnormalities or dilatations. No pneumonia or pneumothorax is seen. There is no axillary or s ignificant mediastinal adenopathy. The patient has had a midline sternotomy. No metastatic bony lesio ns are seen. The upper abdomen shows surgical clips in the distal esophagus. The kidneys show peripheral parenchym al scarring unchanged. Impression: 1. 3 Upper lobe nodules unchanged in size. 2. Bilateral upper lobe parenchymal scarring and fibrosis.
== END 2023-07-07 09:31 | disposition home or self-care (01) ==
LOC: RAD 09:31
PROVIDERS: PCP Family Medicine; Visit Provider Internal Medicine Pulmonary Disease
DX: R91.1 Solitary pulmonary nodule (principal); J84.10 Pulmonary fibrosis, unspecified
CPT/HCPCS: 71250

== ENCOUNTER → 2023-07-30 08:46 | Outpatient (BNVA) | payer MEDICARE, BC, SELFPAY | PROVIDERS: PCP Family Medicine; Visit Provider Internal Medicine Pulmonary Disease | DX: J43.2 Centrilobular emphysema (principal); R05.8 Other specified cough; Z85.46 Personal history of malignant neoplasm of prostate; Z85.819 Personal history of malignant neoplasm of unspecified site of lip, oral cavity, and pharynx; R91.8 Other nonspecific abnormal finding of lung field; Z87.891 Personal history of nicotine dependence; I50.9 Heart failure, unspecified; Z95.5 Presence of coronary angioplasty implant and graft | CPT/HCPCS: 99214 ==

== ENCOUNTER 2023-09-27 13:29 | Outpatient (CLI) | payer MEDICARE, BC, SELFPAY ==
--- NOTE | 2023-09-27 14:30 | CTR_ITS ---
PROCEDURE INFORMATION: Exam: CT Chest Without Contrast; Diagnostic Exam date and time: 09/27/2023 2:00 PM Age: 83 years old Clinical indication: Condition or disease; Lung condition and disease; Cancer of the lung; Bilateral; Unspecified; Primary cancer: Lung, throat, prostate; Prior surgery; Surgery date: 6+ months; Surgery type: Heart; Additional info: Follow up TECHNIQUE: Imaging protocol: Diagnostic computed tomography of the chest without contrast. Radiation optimization: All CT scans at this facility use at least one of these dose optimization techniques: automated exposure control; mA and/or kV adjustment per patient size (includes targeted exams where dose is matched to clinical indication); or iterative reconstruction. COMPARISON: CT chest wo con [id number] 07/07/2023 9:37 AM RADIATION DOSE METRICS: Total DLP (mGy-cm): 427.35 FINDINGS: Thyroid: Grossly unremarkable. Lungs: Again seen is scarring and atelectasis in both upper lobes, not significantly changed. There is a 10 mm right upper lobe pulmonary nodule, unchanged in comparison to prior exams from October 2022 and June 2023. There is a proximally 11 mm ground-glass opacity in the right lower lobe, unchanged since prior exams as well (image 38 of the axial series 3). The previously described suspicious left upper lobe nodule is left solid-appearing on this exam, possibly reflecting treatment response. No focal consolidation. No pneumothorax. Pleural spaces: No pleural effusion. Heart: No cardiomegaly. No pericardial effusion. Coronary arteries: There are incidental coronary artery calcifications. Mediastinal space: Postsurgical changes of the mediastinum compatible with prior CABG. Trachea and airway are grossly patent. No evidence of mediastinal hemorrhage or hematoma. Lymph nodes: No evidence of mediastinal adenopathy. Evaluation for hilar adenopathy is limited by lack of IV contrast. Vasculature: Moderate atherosclerosis without aneurysmal dilatation of the thoracic aorta. Evaluation for acute vascular injury or thrombosis is limited by lack of IV contrast. Bones/joints: No evidence of acute fracture or aggressive osseous lesion. Soft tissues: No evidence of fluid collection or hematoma in the superficial soft tissues. Other findings: No evidence of acute abnormality in the upper abdomen. Postsurgical changes in the region of the GE junction. CT/CT chest wo con [id number] IMPRESSION: 1. Previously described suspicious left upper lobe pulmonary nodule appears less solid on the current exam, possibly reflecting treatment response. Consider follow-up PET-CT to reassess metabolic activity. 2. Bilateral upper lobe scarring/atelectasis, not significantly changed. 3. 10 mm right upper lobe pulmonary nodule, unchanged since November 2022.
== END 2023-09-27 13:30 | disposition home or self-care (01) ==
LOC: RAD 13:29
PROVIDERS: PCP Family Medicine; Visit Provider Internal Medicine Pulmonary Disease
DX: C34.90 Malignant neoplasm of unspecified part of unspecified bronchus or lung (principal); R91.1 Solitary pulmonary nodule
CPT/HCPCS: 71250

== ENCOUNTER 2023-10-26 07:39 | Outpatient (CLI) | payer MEDICARE, BC, SELFPAY ==
--- NOTE | 2023-10-26 08:00 | PETR_ITS ---
PROCEDURE INFORMATION: Exam: PET/CT Skull Base to Mid-thigh Exam date and time: 10/26/2023 8:56 AM Age: 83 years old Clinical indication: Restaging of lung cancer. Prior history of prostate. LABS AND CLINICAL REPORTS: Glucose: 125 mg/dl Treatment strategy for malignancy (PET staging): Restaging (PS) TECHNIQUE: Imaging protocol: Following at least four-hour fasting and following the injection of radiopharmaceutical, low dose CT images were obtained. Then, PET images were obtained. Attenuation corrected images were constructed using the CT scan. Fused images of PET and CT were reviewed. The standardized uptake values (SUV) reported below are maximum values within a region of interest, expressed in gm/ml. Exam includes orbital meatal line to mid-thigh. Radiopharmaceutical: 11.41 mCi F-18 FDG (Fluorodeoxyglucose), IV. Time of imaging post radiopharmaceutical administration: 1 hour Injection site: Right hand COMPARISON: PT PET skulltothi INITIAL [id number] 02/20/2023, CT chest 07/07/2023 and 09/27/2023 FINDINGS: Brain: Visualized brain has normal physiologic uptake. Pharynx: No abnormal uptake. Larynx: No abnormal uptake. Lungs, pleura and trachea: No FDG avid nodules or masses. The FDG avid left the upper lobe nodule documented on 02/20/2023 has resolved compatible with complete response. There is linear opacity in the left upper lobe with low-grade uptake of 1.8 SUV compatible with chronic postradiation pneumonitis similar to stable area of chronic postradiation pneumonitis in the right upper lobe. Stable 1 cm posterior right upper lobe nodule on axial image 80 is non FDG avid (1.1 SUV). Stable about 0.5 cm non FDG avid ground-glass opacity nodule noted on axial image 93. No new nodules. No pleural effusion. Heart: Normal physiologic uptake. 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 No pericardial effusion. Mediastinal space: No abnormal uptake. Stable small hiatal hernia. Liver: No abnormal uptake. Gallbladder and bile ducts: No abnormal uptake. No calcified gallstones. Pancreas: No abnormal uptake. Spleen: No abnormal uptake. Adrenal glands: No abnormal uptake. Kidneys and ureters: Normal physiologic uptake. No hydronephrosis. Stable simple cyst exophytic anteriorly from the lower pole of the left kidney measuring 2.7 cm. Stable 1.5 cm parapelvic simple cyst in the upper pole of the right kidney. Stomach and bowel: No abnormal uptake. Stable findings after abdominal perineal resection with colostomy from descending colon in the left mid abdomen. Intraperitoneal and retroperitoneal spaces: No abnormal uptake. No ascites. 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 Reproductive: See above in bladder . Vasculature: No abnormal uptake. Lymph nodes: No abnormal uptake. No lymphadenopathy in the head, neck, chest, abdomen, pelvis, and extremities. Bones/joints: No abnormal uptake in the visualized axial and appendicular skeleton. Status post sternotomy. Soft tissues: No abnormal uptake in the visualized head, neck, chest, abdomen, pelvis, and extremities. [facility] [id number] IMPRESSION: In comparison with 02/20/2023 there is complete response to treatment with no evidence of FDG avid malignancy. FDG avid left upper lobe nodule documented on 02/20/2023 has resolved with interval development of chronic postradiation pneumonitis.
== END 2023-10-26 07:40 | disposition home or self-care (01) ==
LOC: RAD 07:40
PROVIDERS: PCP Family Medicine; Visit Provider Internal Medicine Pulmonary Disease
DX: C34.90 Malignant neoplasm of unspecified part of unspecified bronchus or lung (principal); R91.1 Solitary pulmonary nodule
CPT/HCPCS: 78815; A9552

== ENCOUNTER 2023-10-27 07:54 | Outpatient (CLI) | payer MEDICARE, BC, SELFPAY ==
--- NOTE | 2023-10-27 08:02 | CT_ITS ---
WS: [id number] CT NECK TECHNIQUE: Contrast-enhanced CT of the neck with coronal and sagittal reformatted images. CLINICAL INFORMATION: MALIGNANT NEOPLASM OF LARYNX COMPARISON: CT 01/15/2016 and PET/CT 10/26/2023 images only. Report not currently available. DLP: 183.[address] scans at [facility] use at least one of these dose optimization techniques: automated e xposure control; mA and/or kV adjustment per patient size (includes targeted exams where dose is matc hed to clinical indication); or iterative reconstruction. FINDINGS: Paranasal sinuses mastoid air cells well aerated. Normal posterior nasopharynx. Somewhat atrophic and fatty infiltration of the parotid glands unchanged since the prior studies. Normal submandibular gla nds. No cervical lymphadenopathy. Normal thyroid gland enhancement. Hazy opacities in the lung apices similar to the recent chest CT. LEFT upper lobe pulmonary nodule measuring 9 mm appears unchanged si nce the recent chest CT. Aortic calcification. Normal thyroid gland. Straightening of the normal cerv ical lordosis. Slight anterolisthesis C4 on C5. C5-6 interbody fusion. Treatment-related changes with asymmetry involving the supraglottic larynx and glottis similar to the prior studies. Sclerotic changes involving the arytenoids similar in appearance. No evidence of new or progressive disease. Dense carotid bulb calcification. IMPRESSION: 1. No evidence of new or progressive disease in the neck. 2. Stable asymmetry to the supraglottic larynx and glottis similar to 2016. No evidence of new or pr ogressive glottic mass or lesion. 3. Stable sclerotic changes involving the arytenoids. 4. Partially visualized pulmonary nodules/opacities in the upper lobes better evaluated on the recen t chest CT. 5. No cervical lymphadenopathy.
[2023-10-27 08:29] LABS: Blood Urea Nitrogen 25 mg/dL (8-23)
[2023-10-27] MEDS: iohexol 350 mg/mL 500 mL Btl (per mL) IV (08:36)
== END 2023-10-27 07:55 | disposition home or self-care (01) ==
LOC: RAD 07:55
PROVIDERS: Absent Provider Internal Medicine Pulmonary Disease; PCP Family Medicine; Visit Provider Specialist
DX: C32.9 Malignant neoplasm of larynx, unspecified (principal)
CPT/HCPCS: 70491; 82565; 84520; Q9967

== ENCOUNTER → 2023-11-09 12:29 | Outpatient (BNVA) | payer MEDICARE, BC, SELFPAY | PROVIDERS: PCP Family Medicine; Visit Provider Internal Medicine Cardiovascular Disease | DX: E78.5 Hyperlipidemia, unspecified (principal); I25.810 Atherosclerosis of coronary artery bypass graft(s) without angina pectoris; Z85.819 Personal history of malignant neoplasm of unspecified site of lip, oral cavity, and pharynx; J43.2 Centrilobular emphysema; Z85.46 Personal history of malignant neoplasm of prostate; Z87.891 Personal history of nicotine dependence; I12.9 Hypertensive chronic kidney disease with stage 1 through stage 4 chronic kidney disease, or unspecified chronic kidney disease; N18.9 Chronic kidney disease, unspecified | CPT/HCPCS: 99214 ==

== ENCOUNTER → 2024-05-26 08:35 | Outpatient (BNVA) | payer MEDICARE, BC, SELFPAY | PROVIDERS: PCP Family Medicine; Visit Provider Nurse Practitioner Family | DX: I25.810 Atherosclerosis of coronary artery bypass graft(s) without angina pectoris (principal); E78.5 Hyperlipidemia, unspecified; Z85.118 Personal history of other malignant neoplasm of bronchus and lung; Z85.89 Personal history of malignant neoplasm of other organs and systems; I12.9 Hypertensive chronic kidney disease with stage 1 through stage 4 chronic kidney disease, or unspecified chronic kidney disease; N18.9 Chronic kidney disease, unspecified | CPT/HCPCS: 99214 ==

== ENCOUNTER 2024-07-28 11:00 | Outpatient (CLI) | payer MEDICARE, BC, SELFPAY ==
--- NOTE | 2024-07-28 10:59 | PETR_ITS ---
PROCEDURE INFORMATION: Exam: PET/CT Skull Base to Mid-thigh Exam date and time: 07/28/2024 11:58 AM Age: 83 years old Clinical indication: Abnormal findings; Pulmonary nodule; Prior surgery; Surgery date: 6+ months; Surgery type: Throat, c-spine, cyst; Patient HX: HX of prostate and lung cancer bilateral, throat cancer LABS AND CLINICAL REPORTS: Glucose: 139 mg/dl Treatment strategy for malignancy (PET staging): Initial Staging (PI) TECHNIQUE: Imaging protocol: Following at least four-hour fasting and following the injection of radiopharmaceutical, low dose CT images were obtained. Then, PET images were obtained. Attenuation corrected images were constructed using the CT scan. Fused images of PET and CT were reviewed. The standardized uptake values (SUV) reported below are maximum values within a region of interest, expressed in gm/ml. Exam includes orbital meatal line to mid-thigh. SUV normalization method: BodyWeight Radiopharmaceutical: 11.74 mCi F-18 FDG (Fluorodeoxyglucose), IV. Time of imaging post radiopharmaceutical administration: 47 minutes Injection site: left wrist COMPARISON: Right rib x-ray series 03/21/2024, CT neck 10/27/2023, PT PET skull to thigh SUBS [id number] 10/26/2023 8:56 AM FINDINGS: Tubes, catheters and devices: A suprapubic urinary catheter is noted. Brain: Visualized brain has normal physiologic uptake. Pharynx: No abnormal uptake. Larynx: No abnormal uptake. Lungs, pleura and trachea: A solid posterior right upper lobe 1.0 x 0.7 cm nodule on series 201, image 477 is stable in size since the prior PET-CT and is radiotracer avid, SUV max 4.1 (previously 1.0). Similar approximately 5-6 mm semi solid appearing nodule in the anterior right upper lobe adjacent to the minor fissure on CT image 456 without elevated uptake. No definite additional pulmonary nodules. Heart: Normal physiologic uptake. Mediastinal space: No abnormal uptake. Esophagus: There are surgical clips in the region of the distal esophagus and gastroesophageal junction. No abnormal uptake. Liver: No abnormal uptake. Gallbladder and biliary ducts: No abnormal uptake. Pancreas: No abnormal uptake. Spleen: No abnormal uptake. Adrenal glands: Mild uptake within a mildly thickened possibly nodular left adrenal gland is noted in the lateral limb, SUV max 3.6 (previously 1.4) series 201, image 343. No abnormal uptake in the right adrenal gland. Kidneys and ureters: Normal physiologic uptake. A non radiotracer avid low-density exophytic structure arising from the left renal inferior pole likely represents a benign cyst. Stomach and bowel: No abnormal uptake. Colonic diverticula are present. A left lower quadrant colostomy site is present. Reproductive: Radiotherapy seeds are noted in the prostate gland. Vasculature: No abnormal uptake. Diffuse atherosclerotic changes are noted, including within the coronary arteries. Lymph nodes: No abnormal uptake. No lymphadenopathy in the head, neck, chest, abdomen, pelvis, and extremities. Skeleton: No abnormal uptake in the visualized axial and appendicular skeleton. Degenerative changes in the spine are noted. A small focus of asymmetric uptake which is likely related to degenerative inflammatory changes is noted in the region of the superior right acromioclavicular joint, SUV max 4.0 on image 552. Uptake within a mildly displaced healing lateral right 4th rib fracture is noted, SUV max 3.5, demonstrated on series 201, image 474. Sternotomy wires are present. Soft tissues: There are surgical clips in the presacral space. Elevated uptake within the region of presacral soft tissue density is noted, SUV max 4.9 (previously 4.8) on PET series 301, image 259. Soft tissue density in this region abuts the posterior aspect of the urinary bladder and the similar morphology compared to the prior PET-CT. It currently measures 4.1 x [address] series 201, image 165. METRICS: Mediastinal blood pool: SUV max 2.9, SUV mean 2.6 PET/PET skull to thigh INIT [id number] IMPRESSION: 1. Compared to the prior PET-CT, is similar in size right upper lobe solid nodule demonstrates new uptake since the prior PET-CT, concerning for possible malignant involvement. 2. Stable additional semi solid anterior right upper lobe nodule adjacent to the minor fissure without elevated uptake. 3. New uptake in the left adrenal gland is present, which can be physiologic, inflammatory or metastatic in etiology. 4. Elevated uptake within a right sided 4th rib fracture is noted, possibly posttraumatic. A malignant etiology is less likely. Correlation with clinical history is recommended. 5. Postoperative changes in the region of the presacral soft tissues are morphologically similar, with persistent mild uptake within this region, which can be related to postoperative inflammatory changes. A malignant etiology is less likely but cannot be entirely excluded. 6. Additional nonurgent findings as detailed above.
== END 2024-07-28 11:01 | disposition home or self-care (01) ==
PROVIDERS: PCP Family Medicine; Visit Provider Family Medicine
DX: R91.8 Other nonspecific abnormal finding of lung field (principal); Z96.0 Presence of urogenital implants; R93.89 Abnormal findings on diagnostic imaging of other specified body structures; R93.422 Abnormal radiologic findings on diagnostic imaging of left kidney; K57.30 Diverticulosis of large intestine without perforation or abscess without bleeding; Z93.3 Colostomy status; Z92.3 Personal history of irradiation; I25.10 Atherosclerotic heart disease of native coronary artery without angina pectoris; G31.89 Other specified degenerative diseases of nervous system; Z87.81 Personal history of (healed) traumatic fracture; Z98.890 Other specified postprocedural states
CPT/HCPCS: 78815; A9552

== ENCOUNTER → 2025-05-28 15:43 | Outpatient (BNVA) | payer MEDICARE, BC, SELFPAY | PROVIDERS: PCP Family Medicine; Visit Provider Internal Medicine Cardiovascular Disease | DX: I25.810 Atherosclerosis of coronary artery bypass graft(s) without angina pectoris (principal); I10 Essential (primary) hypertension; E78.5 Hyperlipidemia, unspecified; Z95.1 Presence of aortocoronary bypass graft; Z87.891 Personal history of nicotine dependence; I25.2 Old myocardial infarction | CPT/HCPCS: 99214 ==